=== PATIENT | female | born 1940 ===

== ENCOUNTER → 2021-01-27 14:36 | Outpatient (BNVA) | payer MEDICARE, OTHER, SELFPAY | PROVIDERS: PCP Internal Medicine; Visit Provider Hospitalist | DX: R91.8 Other nonspecific abnormal finding of lung field (principal) | CPT/HCPCS: 99202 ==

== ENCOUNTER → 2021-04-28 14:31 | Outpatient (BNVA) | payer MEDICARE, OTHER, SELFPAY | PROVIDERS: PCP Internal Medicine; Visit Provider Hospitalist | DX: R91.8 Other nonspecific abnormal finding of lung field (principal) | CPT/HCPCS: 99212 ==

== ENCOUNTER 2021-09-11 13:34 | Outpatient (REF) | payer MEDICARE, OTHER, SELFPAY ==
--- NOTE | ~2021-09-11 | XR_ITS ---
EXAMINATION: XR CHEST CLINICAL INFORMATION: Covid infection COMPARISON: None TECHNIQUE: 2 views of the chest were obtained. FINDINGS: The cardiac and mediastinal contours are normal. The lungs are clear. There is no pleural effusion or pneumothorax. There are surgical clips in the right axilla or upper outer quadrant of the right breast. Bony structures are unremarkable. XR/XR chest 2V IMPRESSION: No evidence of acute disease in the chest.
== END 2021-09-11 13:35 | disposition home or self-care (01) ==
LOC: HO.XRAY 13:34
PROVIDERS: PCP Internal Medicine; Visit Provider Hospitalist
DX: U07.1 COVID-19 (principal); R91.8 Other nonspecific abnormal finding of lung field
CPT/HCPCS: 71046; 99212

== ENCOUNTER → 2021-10-25 09:45 | Outpatient (BNVA) | payer MEDICARE, OTHER, SELFPAY | PROVIDERS: PCP Internal Medicine; Visit Provider Hospitalist | DX: R91.8 Other nonspecific abnormal finding of lung field (principal); Z85.3 Personal history of malignant neoplasm of breast | CPT/HCPCS: 99212 ==

== ENCOUNTER 2021-11-02 06:56 | Day surgery (SDC) | payer MEDICARE, OTHER, SELFPAY ==
--- NOTE | 2021-11-01 09:02 | HO.ANESPROP2 ---
Documented by User: Rachna Moyer NP 11/01/21 09:03 HPI - Anesthesia Eval Consult details Narrative: 81yo F for Bronchoscopy Fiberoptic PMFSH Active Problems Active Problems: All Active Problems (Updated 09/05/21 @ 16:35 by Margarito Mcwilliams MD) COVID-19 (Acute) Pulmonary nodules (Acute) Past Medical History Medical History (Updated 11/02/21 @ 08:00 by Za Betancourt MD) Breast cancer HTN (hypertension) Pulmonary nodules Surgical History Surgical History (Updated 11/02/21 @ 07:51 by Millicent Alas RN) History of lumpectomy of right breast Social History Social History Patient Tobacco Use Status: Former Tobacco user Quit Date: years ago Tobacco use type: Cigarette Years Smoked: 22 years Use of substances other than those prescribed or required for medical reasons: No Are you DNR?: No Advance Directives: No Advance Directives Information Provided: Yes Meds Allergies Allergy/AdvReac Type Severity Reaction Status Date / Time Iodinated Contrast Media Allergy Severe Tightness Verified 11/01/21 10:09 [Contrast Dye] in Throat Home Medications Medication Instructions Recorded Confirmed Last Taken Type biotin 5 mg capsule 5 mg PO DAILY 01/27/21 Unknown History cholecalciferol (vitamin D3) 50 50 mcg PO DAILY 01/27/21 Unknown History mcg (2,000 unit) capsule estradiol (Estrace) 1 g vaginal QWEEK 01/27/21 Unknown History multivitamin (Daily Multi-Vitamin) 1 tab PO DAILY 01/27/21 Unknown History ramipril 5 mg capsule 5 mg PO DAILY 01/27/21 Unknown History chlorhexidine gluconate 0.12 % ml PO 04/28/21 Unknown History mouthwash tobramycin 0.3 %-dexamethasone 0.1 1 drp ophthalmic-Right QID 09/11/21 Unknown History % eye drops,suspension vit C 250 mg-vit E 90 mg-zinc 40 1 tab PO BID 09/11/21 Unknown History mg-copper 1 kg-uiieog-bwdwze capsule (PreserVision AREDS-2) Exam Exam Date and Time: November 01, [id number] Assessment and Plan Assessment Anesthesia Assessment: Chart Reviewed Documented by User: Za Betancourt MD 11/02/21 08:11 PMFSH Active Problems Active Problems: All Active Problems (Updated 09/05/21 @ 16:35 by Margarito Mcwilliams MD) COVID-19 (Acute). Lingering cough which has mostly resolved Pulmonary nodules (Acute) Past Medical History Medical History (Updated 11/02/21 @ 08:00 by Za Betancourt MD) Breast cancer HTN (hypertension) Pulmonary nodules Family History Family history of problems with anesthesia: No Surgical History Surgical History (Updated 11/02/21 @ 07:51 by Millicent Alas RN) History of lumpectomy of right breast History of Problems with Anesthesia: No Social History Social History Patient Tobacco Use Status: Former Tobacco user Quit Date: years ago Tobacco use type: Cigarette Years Smoked: 22 years Use of substances other than those prescribed or required for medical reasons: No Are you DNR?: No Advance Directives: No Advance Directives Information Provided: Yes Meds Allergies Allergy/AdvReac Type Severity Reaction Status Date / Time Iodinated Contrast Media Allergy Severe Tightness Verified 11/01/21 10:09 [Contrast Dye] in Throat Home Medications Medication Instructions Recorded Confirmed Last Taken Type biotin 5 mg capsule 5 mg PO DAILY 01/27/21 Unknown History cholecalciferol (vitamin D3) 50 50 mcg PO DAILY 01/27/21 Unknown History mcg (2,000 unit) capsule estradiol (Estrace) 1 g vaginal QWEEK 01/27/21 Unknown History multivitamin (Daily Multi-Vitamin) 1 tab PO DAILY 01/27/21 Unknown History ramipril 5 mg capsule 5 mg PO DAILY 01/27/21 Unknown History chlorhexidine gluconate 0.12 % ml PO 04/28/21 Unknown History mouthwash tobramycin 0.3 %-dexamethasone 0.1 1 drp ophthalmic-Right QID 09/11/21 Unknown History % eye drops,suspension vit C 250 mg-vit E 90 mg-zinc 40 1 tab PO BID 09/11/21 Unknown History mg-copper 1 on-baroxm-dinfob capsule (PreserVision AREDS-2) Exam Height,Weight and Vital Signs: Height 5 ft 7 in Weight 63.049 kg Vital Signs Temp Pulse Resp BP Pulse Ox O2 Del Method 11/02/21 07:48 97.1 F 59 18 126/53 L 96 Room Air Airway Mallampati Class: II TM Dist: >3cm Neck ROM: Full Loose/Missing/Broken Teeth: Yes (?broken top back right per patient) Heart: RRR Lungs: CTAB Assessment and Plan Assessment Anesthesia Assessment: Anesthesia Plan Discussed Final Anesthetic Review Family History of Problems with Anesthesia: No History of Problems with Anesthesia: No NPO: Yes ASA Class: II Final Preanesthetic Review: No Changes in Pt Med Stat, Meds/Allgs Chart Reviewed, Consent Obtained/Reviewed and Anes Risks/Benef Reviewed Patient Risk: Low Procedure Risk: Low Assessment/Block/Sedation in SS: Assess/Block/Sedation-SS Anesthetic Plan Anesthetic Plan: GA Disposition: Standard PACU
--- NOTE | ~2021-11-02 | XR_ITS ---
EXAMINATION: XR CHEST CLINICAL INFORMATION: Status post-post lung biopsy. COMPARISON: Chest radiographs dated 09/11/2021. TECHNIQUE: Frontal view of the chest was obtained. FINDINGS: No significant abnormality is noted involving the heart, lungs, mediastinum, bony thorax or soft tissues. XR/XR chest 1V IMPRESSION: Unremarkable examination. No pneumothorax is seen.
[2021-11-02 07:16] VITALS: BMI 21.7
[2021-11-02 07:48] VITALS: BP 126/53; PULSE 59; RESP 18; TEMP 36.2; O2SAT 96
[2021-11-02 07:49] VITALS: BMI 21.7
[2021-11-02] MEDS: Lactated Ringers 1,000 ML 100 ML IVCONT (08:09)
--- NOTE | 2021-11-02 08:10 | MHC.SHP ---
Pre-Procedural Eval Section A Date of Service: 11/02/21 The patient is an INPATIENT: No Changes since office visit: No Cold of Flu in the past 2 weeks, No New Medical Problems, No Changes in Medication and No Patient answered all questions Section B Chief Complaint: pulmonary nodule Allergies: Allergies Allergy/AdvReac Type Severity Reaction Status Date / Time Iodinated Contrast Media Allergy Severe Tightness Verified 11/01/21 10:09 [Contrast Dye] in Throat Plan I have reviewed the history and physical and performed a pertinent physical examination on my patient. No changes have occurred unless specified.
[2021-11-02 08:50] VITALS: BP 127/72; PULSE 72; RESP 16; TEMP 36.3; O2SAT 97
[2021-11-02 08:55] VITALS: BP 139/68; PULSE 71; RESP 17; O2SAT 96
--- NOTE | 2021-11-02 08:59 | PM.OP ---
Brief Operative Note Date of Service: 11/02/21 Pre-op diagnosis: pulmonary nodules Post-op diagnosis: same Procedure: bronchoscopy with transbronchial biopsies, brushings, washings Surgeon: Margarito Mcwilliams MD Anesthesia: GLMA Was an Treatment Plant Mechanic used for this Procedure?: No Estimated blood loss (mL): 0 Pathology: other (RML transbronchial biopsies) Condition: stable Disposition: same day
[2021-11-02 09:00] VITALS: BP 135/57; PULSE 71; RESP 18; O2SAT 98
[2021-11-02 09:05] VITALS: BP 137/58; PULSE 68; RESP 18; O2SAT 98
[2021-11-02 09:20] VITALS: BP 158/65; PULSE 61; RESP 18; TEMP 36.3; O2SAT 98
--- NOTE | 2021-11-02 23:33 | OP_ITS ---
SURGEON: Margarito Mcwilliams MD PREOPERATIVE DIAGNOSIS: Pulmonary nodules. POSTOPERATIVE DIAGNOSIS: Pulmonary nodules. PROCEDURE PERFORMED: Bronchoscopy with transbronchial biopsies, brushings and washings. ESTIMATED BLOOD LOSS: COMPLICATIONS: ANESTHESIA: ASSISTANTS: SPECIMENS: COLUMN PRECASTER: None. PROCEDURE IN DETAIL: After the patient was adequately sedated and LMA in place, the flexible digital bronchoscope was inserted over the LMA to the level of the larynx. The vocal cords appear to be normal, midline and symmetrical. No laryngeal abnormalities noted. After instilling lidocaine 2% total of 6 mL, the bronchoscope was then passed through vocal cords to the level of the trachea. Tracheal mucosa appeared normal. There were some areas of mucoid secretions impacting the lorenzo but not obstructing the airway. After instilling another 3 mL of lidocaine, the bronchoscope was then navigated to the entire tracheobronchial tree that was examined up to the subsegmental level. No endobronchial lesions or abnormalities noted per se. She did have what appeared to be some bronchiectatic airways, diverticula and some acanthosis likely from her former smoking years and possibly other environmental exposures resulting in chronic airway changes. The patient did have mucoid secretions primarily from the lingula and also from the right middle lobe. Using a brush, it was introduced into the right middle lobe at the site of the growing nodule, and the initial brush was sent for cytology and the second brush was sent for microbiology. Bronchial washings were collected bilaterally. Next, using forceps, transbronchial biopsies were collected from the right middle lobe. Small pieces of transbronchial tissue were collected and placed in formalin for pathology to evaluate. The patient did have any significant bleeding, so therefore, epinephrine was not used. She tolerated the procedure well. No evidence of bleeding after few minutes of monitoring. The bronchoscope was then removed. The total endoscopic time was approximately about 20 minutes. The patient tolerated the procedure well. Blood loss none and complications none. Chest x-ray appeared to be stable. INTERPRETATION: Successful bronchoscopy with transbronchial biopsies of the right middle lobe. Brushings x2 from the right middle lobe and bilateral washings. All sent to the appropriate location. MD CADE Yu/MODL / [id number]
== END 2021-11-02 11:05 | disposition home or self-care (01) ==
PROVIDERS: PCP Internal Medicine; Visit Provider Hospitalist
PROC: 0BJ08ZZ Inspection of Tracheobronchial Tree, Via Natural or Artificial Opening Endoscopic (ICD-10-PCS; CPT 31622; principal; 2021-11-02 08:00)
DX: R91.8 Other nonspecific abnormal finding of lung field (principal); I10 Essential (primary) hypertension; Z85.3 Personal history of malignant neoplasm of breast; Z92.3 Personal history of irradiation; Z91.041 Radiographic dye allergy status; Z87.891 Personal history of nicotine dependence; Z79.899 Other long term (current) drug therapy
CPT/HCPCS: 31628; 31623; 71045; 87071; 87102; 87116; 87205; 88112; 88305; J0171; J1100; J2405

== ENCOUNTER → 2021-11-17 13:32 | Outpatient (BNVA) | payer MEDICARE, OTHER, SELFPAY | PROVIDERS: PCP Internal Medicine; Visit Provider Hospitalist | DX: R91.8 Other nonspecific abnormal finding of lung field (principal) | CPT/HCPCS: 99212 ==

== ENCOUNTER → 2022-05-17 14:07 | Outpatient (BNVA) | payer MEDICARE, OTHER, SELFPAY | PROVIDERS: PCP Internal Medicine; Visit Provider Hospitalist | DX: R91.8 Other nonspecific abnormal finding of lung field (principal); R05.3 Chronic cough | CPT/HCPCS: 99212 ==

== ENCOUNTER 2022-05-29 09:04 | Outpatient (REF) | payer MEDICARE, OTHER, SELFPAY ==
--- NOTE | ~2022-05-29 | PE_ITS ---
EXAMINATION: NM FLUORINE-18 FDG PET/CT SCAN CLINICAL INDICATION: Initial treatment management. Right middle lobe pulmonary nodule. PROCEDURE: 55 minutes following the intravenous administration of 16.8 mCi of fluorine 18 FDG, images from the base of the skull to the mid thighs were obtained using a combined PET/CT scanner with CT scan based attenuation correction. No intravenous contrast was administered. Transverse, coronal, sagittal, and volume reconstruction projections were obtained. The patient's blood glucose as determined by a finger stick was 95 mg/dL immediately prior to injection. This examination was performed using dose optimization techniques as appropriate, variously including the following: *Automated exposure control *Adjustment of mA and/or kV according to patient size (this includes techniques or standardized protocols for targeted exams where dose is matched to indication/reason for exam; i.e. extremities or head) *Use of iterative reconstruction technique DLP: 319 mGy-cm COMPARISON: CT chest 04/30/2022, [facility]. FINDINGS: NECK AND VISUALIZED HEAD: Mild focal FDG uptake in the left posterior neck SUVmax 2.1 (slice 44/698), in association with what appears to be a serpiginous vessel, of uncertain significance. Attention on follow-up in future examinations recommended. THORAX: Lung: The lesion in question corresponds to a subsolid right middle lobe pulmonary nodule measuring 1.7 cm with solid component measuring 0.7 cm, SUVmax 1.3 (slices 238 and 240/698). Several additional pulmonary nodules are noted, largest as follow: 1. Ground-glass nodule in the right lower lobe measuring 1.6 cm, SUVmax 0.9 (slice 219/698). 2. Solid 0.5 cm nodule in the right apex (image 213, series 2), too small to characterize by PET. 3. Solid 0.9 cm nodule in the right upper lobe, SUVmax 1 (slice 140/698). 4. Solid 0.3 cm nodule in the lateral right upper lobe (image 201, series 2), too small to characterize by PET. 5. Solid 0.3 cm nodule in the right upper lobe (image 192, series 2), too small to characterize by PET. 6. Solid 0.8 cm nodule in the right lower lobe SUVmax 1 (slice 256/698). 7. Solid 0.7 cm nodule in the left lower lobe SUVmax 1.4 (slice 237/698). Background of emphysematous changes and mild biapical subpleural thickening/scarring. No focal consolidation. Mediastinum: No FDG-avid mediastinal lymphadenopathy. Mild focal FDG uptake in the left hilum SUVmax 1.8 (slice 203/698), nonspecific could represent a subcentimeter lymph node or related with the pulmonary vasculature. Normal heart size. Coronary artery calcifications are present. Pericardium/Pleura: No abnormal FDG uptake. No pleural effusion or pneumothorax. No pericardial effusion. Chest Wall/Axilla: No FDG-avid lymphadenopathy. Surgical clips are noted in the right axillary region. ABDOMEN AND PELVIS: Peritoneal Space: No abnormal FDG uptake. Liver, Gallbladder, Biliary Tree: No FDG-avid lesion. Normal appearance of the gallbladder. No biliary ductal dilatation. Pancreas: No abnormal FDG uptake. Spleen: No abnormal FDG activity. Adrenal Glands: No FDG-avid lesion. Kidneys and Ureters: No nephrolithiasis or hydronephrosis. No abnormal FDG uptake. Bladder: Nondiagnostic evaluation of FDG-avid lesions due to excretory activity. Gastrointestinal Tract: Varying degrees of physiologic uptake throughout the bowel. No abnormal focal FDG uptake. Colonic diverticulosis. No findings to suspect acute colitis, diverticulitis or bowel obstruction. Abdominal Wall: No abnormal FDG uptake. Lymphovascular Structures: No FDG-avid lymphadenopathy. Pelvic Viscera: No abnormal FDG uptake. MUSCULOSKELETAL: No aggressive FDG-avid bony lesions. Focal increased FDG uptake in the left facet at the level of C4 SUVmax 3.1 (slice 69/698) and in the left sternoclavicular joint SUVmax 2.6 (slice 160/698) in association with subcortical sclerosis and osteophytes, favored to represent degenerative changes. Focal FDG uptake at injection site in the left antecubital fossa. VASCULAR: No abnormal FDG uptake. There is scattered atherosclerotic disease. The abdominal aorta is of normal diameter. PET/PET CT fusion skull to thigh IMPRESSION: Multiple mixed solid, subsolid and ground-glass pulmonary nodules largest being a 1.7 cm subsolid nodule in the right middle lobe with solid component measuring 0.7 cm SUVmax 1.3 and a 1.6 cm ground-glass nodule in the right lower lobe SUVmax 0.9. Because approximately 10% of pulmonary malignancies demonstrate no abnormal FDG activity/uptake lesser than the mediastinal blood pool, if biopsy of the largest nodules is not obtained, followup with diagnostic CT scan in 3-6 months is recommended. Mild focal FDG uptake in the left hilum, SUVmax 1.8 that could represent a subcentimeter lymph node or be related with pulmonary vasculature uptake. This could be safely follow-up in subsequent examinations. No evidence of hypermetabolic metastatic disease.
== END 2022-05-29 09:05 | disposition home or self-care (01) ==
LOC: HO.PET 09:04
PROVIDERS: Visit Provider Hospitalist
DX: Z13.89 Encounter for screening for other disorder (principal)

== ENCOUNTER → 2022-06-06 10:55 | Outpatient (BNVA) | payer MEDICARE, OTHER, SELFPAY | PROVIDERS: PCP Internal Medicine; Visit Provider Hospitalist | DX: R91.8 Other nonspecific abnormal finding of lung field (principal); R05.3 Chronic cough | CPT/HCPCS: 99212 ==

== ENCOUNTER → 2022-08-20 13:18 | Outpatient (BNVA) | payer MEDICARE, OTHER, SELFPAY | PROVIDERS: PCP Internal Medicine; Visit Provider Hospitalist | DX: R91.1 Solitary pulmonary nodule (principal); C34.91 Malignant neoplasm of unspecified part of right bronchus or lung; D3A.00 Benign carcinoid tumor of unspecified site; R05.3 Chronic cough | CPT/HCPCS: 99212 ==

== ENCOUNTER → 2022-09-06 11:18 | Outpatient (BNVA) | payer MEDICARE, OTHER, SELFPAY | PROVIDERS: PCP Internal Medicine; Visit Provider Hospitalist | DX: C34.91 Malignant neoplasm of unspecified part of right bronchus or lung (principal); R05.3 Chronic cough; D3A.00 Benign carcinoid tumor of unspecified site | CPT/HCPCS: 99212 ==

== ENCOUNTER 2023-03-01 09:14 | Outpatient (AMB) | payer MEDICARE, OTHER, SELFPAY ==
--- NOTE | 2023-03-01 09:17 | MHC.OFFVIS ---
Intake Vital Signs 03/01/23 09:21 Height 5 ft 7 in Weight 143 lb 4.807 oz BMI 22.4 BP 118/60 Blood Pressure Location Lt brachial Position Sitting Pulse 56 Pulse Source Pulse Oximeter Pulse Oximetry (%) 99 Oxygen Delivery Method Room Air Intake Visit Reasons: pulmonary nodules Legal Cashier Required: No Allergies Iodinated Contrast Media [Contrast Dye] Allergy (Severe, Verified 03/01/23 09:23) Tightness in Throat HPI HPI Comments History of Present Illness Details The patient is an 82-year-old woman with a known history of breast cancer back in 2017 who also has a history of pulmonary nodules. She was followed very closely for her pulmonary nodules at [facility]. She had CT scans for several years and her last CT scan was back in 2018. overall the patient has been doing well from a respiratory status. Denies any shortness of breath or chest congestion. She does have a cough at times. Primarily at nighttime tends to be worse. Mild in severity. Ultimately she did undergo repeat CT scan more recently December 2020. This CT scan of the chest was personally by me demonstrating 2 new nodular densities 1 in the right upper lobe and 1 in the right lower lung. Patient has although pulmonary nodules noted. These 2 nodules are indeed new. They do have a slight hazy appearance. we did review her CT scans from 2018 and also 2018. her new pulmonary nodules very between 5-8 mm in size. She has had other nodules waxing waning. I am going to request blood work for or different inflammatory allergies that can resulting pulmonary nodules. In the meantime based on the size of the nodules in her history of breast cancer no request a repeat CT scan 3 months from now. 04/28/2021 the patient is here for a pulmonary follow-up visit. Overall the patient has been doing well from a respiratory status. We did review her blood work that she underwent back in fall. the workup was negative. Normal sedimentation rate, normal hyper sensitivity panel, negative ANCA ruling out vasculitides in a negative JILL. Therefore no clear etiology for the nodular densities in or the ground-glass opacities. She did have a repeat CT scan of the chest demonstrating no significant changes to the pulmonary nodules when compared to the CT scan done in December 2020. However, these nodular densities have worsen when compared to her CT scan from 2019. Therefore, the nodules are still concerning and should be monitor closely. I will request a CT scan of the chest in months. 11/17/2021 the patient is here for a pulmonary follow-up visit. She is doing very well. The patient tolerated the bronchoscopy well without any adverse effects. Her cytology both brushings washings have demonstrated only acute on chronic inflammatory cells. No evidence of any malignancy. In addition to that we did perform transbronchial biopsies of the right middle lobe demonstrating normal broncho alveolar tissue. Her cultures are all negative although the AFB and mycobacterial cultures are still pending. Does with take several more weeks. Again we did talk about her CT scan. She has underlying pulmonary nodules. She has had pulmonary nodules now for many years but wishes that was getting slightly worse in the right middle lobe. The patient is agreeable to repeat the CT scan in 6 months just to make sure that the process is stable. The bronchoscopies results are encouraging although close monitoring of the nodular densities still essential. 05/17/2022 the patient is here for a pulmonary follow-up visit. The patient overall has been doing well from a respiratory status. She does have intermittent cough but otherwise doing well. No significant weight loss or night sweats. The patient was curious about the other pending results of her bronchoscopy. We did review her mycobacterial cultures all negative. Again her transbronchial biopsies were consistent normal bronchoalveolar tissue. brushings and washings demonstrated some mild inflammatory changes. She did have a repeat CT scan of the chest April 2022 which we personally reviewed. It was done at [facility] and was compared to her previous 1 from 6 months ago. The actual nodular density in right middle lobe area if not well-circumscribed is irregular in nature. This seems to be in nodular component to it although is not clear if he has the same process. Still it appeared to be slightly larger measuring 12 mm 6 months ago and now 14 mm in diameter. the patient has other pulmonary nodules but the appear to be changed. Based on this increasing nodular density now measuring 1.4 cm I will request a PET scan. Also will refer the patient to be evaluated by thoracic surgery. 06/06/2022 the patient is here for a pulmonary follow-up visit. The patient continues to be fairly nervous about her upcoming visit with the thoracic surgeon. She did bring her son to this visit. We again went over the CT scan that she had back in September 2021 at [facility] and also the repeat CT scan that she had in April 2021. We did go over the bronchoscopy results demonstrating no evidence of any infection and her blind transbronchial biopsies demonstrated no abnormalities all the broncho are really tissue that being said we know that the area was felt to be increasing in size on her most recent CT scan. Therefore she underwent a PET scan. The PET scan has not been read officially as of yet we did look at it. The area of concern does not have significant FDG activity at this time that I could see. No other significant areas except for some likely physiological changes that I could appreciate. Overall her PET scan results are reassuring. This area is irregular in size and may have a component of subsolid so therefore the PET scan may be a little less accurate when he comes to these lesions. Therefore, I do believe that evaluation of thoracic surgeon will be handle and finger in about the next step. Otherwise respiratory status is stable. She denies any worsening respiratory symptoms. She denies any constitutional symptoms. 08/20/2022 The patient is here for a pulmonary follow up visit. 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 Lymphnodes are negative. Surgery is curative intent. No need for chemo or radiation. Has a CT chest at [facility] in 6 months. In the meantime she complains of a hacky cough primarily swhen laying flat, moderate in severity. Also complianing of right sided pain at the site of the surgical tube site. Looks like is healing well. Still with a small scab and some erythma and tender induration around the site. 09/06/2022 the patient is here for pulmonary follow-up visit. She still having pain at the site of the surgery. Moderate severity. She was given gabapentin but she can tolerated. I did recommend she can consider using the gabapentin at nighttime between 100-200 mg. She does have an appointment with psychiatrist is afternoon they can discuss it as far as trazodone versus gabapentin. I do believe that the in her lactic will help with her sleep and also help with her nerve does comfort after having the thoracoscopy. The area looks better. Does not look as read. Does not look as indurated. I did reassure her that looks a lot better. She is very tear for in upset about the situation with her son. Her son appears to have some degree of schizophrenia or delusional manifestations. The patient is trying to find help for her son. She denies her son having any homicidal or suicidal ideations. His son is not with her. Therefore, did call crisis and they did give me a phone number for them to call to see if they can provide her some assistance. For respiratory status patient appears to be doing well she is following closely with her exercises. She had a CT scan scheduled for 6 months time. Will follow up then. If she has any issues prior to that she is to call the office for an earlier assessment. 03/01/2023 the patient is here for a pulmonary follow-up visit. Overall the patient has been doing very well. Her cough is overall better. Her chest discomfort also better. She is sleeping better. She did recently have a CT scan of the chest that we personally reviewed. She has had her status post wedge resection and is appears to be healing well. No evidence of any recurrence. She will be following closely with thoracic surgery every 6 months for the next 5 years. We did talk about vaccines. I did recommend she follow up with the pharmacy regarding her Prevnar 20 and also did recommend she get the ER as he vaccine. She already got her flu shot. The patient is not using any inhalers at this time. She is no longer requiring the Tessalon Perles. Will follow-up in a year's time. The patient has any new or concerning symptoms prior to that she will call the office for an earlier assessment [facility] Medical History (Updated 03/01/23 @ 12:48 by Margarito Mcwilliams MD) Carcinoid tumor Adenocarcinoma of right lung Chronic cough Pulmonary nodule HTN (hypertension) Breast cancer Pulmonary nodules Surgical History (Updated 11/02/21 @ 07:51 by Millicent Alas RN) History of lumpectomy of right breast Social History Patient Tobacco Use Status: Former Tobacco user Quit Date: years ago Tobacco use type: Cigarette Years Smoked: 22 years Review of Systems Const Denies fever(s) and Denies night sweats ENT Denies change in voice, Denies lip swelling, Denies mouth pain, Reports nasal congestion, Reports nasal discharge and Denies tongue swelling Card Reports chest pain Resp Reports cough GI Denies abdominal pain Musc Denies no additional complaints Neuro Denies Neuro-related abnormal movements Psych Denies no additional complaints Anthony/Lymph Denies easy bleeding and Denies lymphadenopathy Aller/Immun Denies lip swelling and Denies tongue swelling Physical Exam Vital Signs: Last Vital Signs Pulse 56 03/01/23 09:21 BP 118/60 03/01/23 09:21 Pulse Ox 99 03/01/23 09:21 Oxygen Delivery Method Room Air 03/01/23 09:21 BMI result Body Mass Index 22.4 Const General: alert Neck Neck: Yes normal visual inspection, Yes full ROM and Yes no lymphadenopathy Chest Chest palpation & inspection: normal inspection of the chest, no tenderness, No rash and other (right chest surgical site C/D/I) Resp Auscultation: clear to auscultation bilaterally, no crackles, no rales, no rhonchi and no wheezes Cardio Rate: regular rate Rhythm: regular rhythm Heart sounds: S1 normal heart sound present and S2 normal heart sound present GI Palpation (GI): Soft to palpation and nontender Auscultation: normal bowel sounds Skin Wounds: wounds noted (right chest wound C/D/I, just mild erytheman with induration.) Assessment & Plan Assessment & Plan (1) Chronic cough: Comment: better Code(s): R05.3 - Chronic cough (2) Adenocarcinoma of right lung: Code(s): C34.91 - Malignant neoplasm of unspecified part of right bronchus or lung (3) Carcinoid tumor: Code(s): D3A.00 - Benign carcinoid tumor of unspecified site Qualifiers: Carcinoid tumor location: lung Carcinoid tumor malignancy status: benign Qualified Code(s): D3A.090 - Benign carcinoid tumor of the bronchus and lung Plan F/U CT chest in 6 months at [facility] F/U 6-12 months Coding Level of Care Code Est Pt Level 4 (97795) Diagnoses Chronic cough R05.3 Adenocarcinoma of right lung C34.91 Benign carcinoid tumor of lung D3A.090 Carcinoid tumor location: lung Carcinoid tumor malignancy status: benign Time Spent (min) 16
[2023-03-01 09:21] VITALS: BP 118/60; PULSE 56; O2SAT 99; BMI 22.4
== END 2023-03-01 09:40 | disposition home or self-care (01) ==
PROVIDERS: PCP Internal Medicine; Visit Provider Hospitalist
DX: R05.3 Chronic cough (principal); C34.91 Malignant neoplasm of unspecified part of right bronchus or lung; D3A.090 Benign carcinoid tumor of the bronchus and lung
CPT/HCPCS: 99214

== ENCOUNTER → 2023-03-01 09:14 | Outpatient (BNVA) | payer MEDICARE, OTHER, SELFPAY | PROVIDERS: PCP Internal Medicine; Visit Provider Hospitalist | DX: R05.3 Chronic cough (principal); C34.91 Malignant neoplasm of unspecified part of right bronchus or lung; D3A.090 Benign carcinoid tumor of the bronchus and lung | CPT/HCPCS: 99212 ==

== ENCOUNTER 2024-03-06 13:18 | Outpatient (AMB) | payer MEDICARE, OTHER, SELFPAY ==
[2024-03-06 13:24] VITALS: BP 120/70; PULSE 96; O2SAT 98; BMI 22.3
--- NOTE | 2024-03-06 13:24 | A.OFFVIS_ITS ---
Vital Signs 03/06/24 13:24 Height 5 ft 7 in Weight 142 lb 3.17 oz BMI 22.3 BP 120/70 Blood Pressure Location Lt brachial Position Sitting Pulse 96 Pulse Source Pulse Oximeter Pulse Oximetry (%) 98 Oxygen Delivery Method Room Air Intake Visit Reasons: Pulmonary nodule Personal Development Mentor Required: No R And D Lab Technician: R And D Lab Technician offered & declined Accompanied by: Self / Same As Patient Allergies Iodinated Contrast Media [Contrast Dye] Allergy (Severe, Verified 03/06/24 13:28) Tightness in Throat Medication List - Last Reconciled 03/06/24 by Cora Medrano LPN benzonatate 200 mg PO BID PRN 15 days cholecalciferol (vitamin D3) 50 mcg PO DAILY estradiol 0.01%(0.1mg/gram) (Estrace) 1 g vaginal QWEEK metoprolol tartrate 12.5 mg PO BID multivitamin (Daily Multi-Vitamin tablet) 1 tab PO DAILY omeprazole 20 mg PO BID ramipril 5 mg PO DAILY trazodone 50 mg PO BEDTIME HPI Comments Details: The patient is an 83-by daycare [employer] we can year-old woman with a known history of breast cancer back in 2017 who also has a history of pulmonary nodules. She was followed very closely for her pulmonary nodules at [facility]. She had CT scans for several years and her last CT scan was back in 2019. overall the patient has been doing well from a respiratory status. Denies any shortness of breath or chest congestion. She does have a cough at times. Primarily at nighttime tends to be worse. Mild in severity. Ultimately she did undergo repeat CT scan more recently December 2020. This CT scan of the chest was personally by me demonstrating 2 new nodular densities 1 in the right upper lobe and 1 in the right lower lung. Patient has although pulmonary nodules noted. These 2 nodules are indeed new. They do have a slight hazy appearance. we did review her CT scans from 2018 and also 2018. her new pulmonary nodules very between 5-8 mm in size. She has had other nodules waxing waning. I am going to request blood work for or different inflammatory allergies that can resulting pulmonary nodules. In the meantime based on the size of the nodules in her history of breast cancer no request a repeat CT scan 3 months from now. 04/28/2021 the patient is here for a pulmonary follow-up visit. Overall the patient has been doing well from a respiratory status. We did review her blood work that she underwent back in fall. the workup was negative. Normal sedimentation rate, normal hyper sensitivity panel, negative ANCA ruling out vasculitides in a negative JILL. Therefore no clear etiology for the nodular densities in or the ground-glass opacities. She did have a repeat CT scan of the chest demonstrating no significant changes to the pulmonary nodules when compared to the CT scan done in December 2020. However, these nodular densities have worsen when compared to her CT scan from 2018. Therefore, the nodules are still concerning and should be monitor closely. I will request a CT scan of the chest in 6 months. 11/17/2021 the patient is here for a pulmonary follow-up visit. She is doing v yuliya well. The patient tolerated the bronchoscopy well without any adverse effects. Her cytology both brushings washings have demonstrated only acute on chronic inflammatory cells. No evidence of any malignancy. In addition to that we did perform transbronchial biopsies of the right middle lobe demonstrating normal broncho alveolar tissue. Her cultures are all negative although the AFB and mycobacterial cultures are still pending. Does with take several more weeks. Again we did talk about her CT scan. She has underlying pulmonary nodules. She has had pulmonary nodules now for many years but wishes that was getting slightly worse in the right middle lobe. The patient is agreeable to repeat the CT scan in 6 months just to make sure that the process is stable. The bronchoscopies results are encouraging although close monitoring of the nodular densities still essential. 05/17/2022 the patient is here for a pulmonary follow-up visit. The patient overall has been doing well from a respiratory status. She does have intermittent cough but otherwise doing well. No significant weight loss or night sweats. The patient was curious about the other pending results of her bronchoscopy. We did review her mycobacterial cultures all negative. Again her transbronchial biopsies were consistent normal bronchoalveolar tissue. brushings and washings demonstrated some mild inflammatory changes. She did have a repeat CT scan of the chest April 2022 which we personally reviewed. It was done at [facility] and was compared to her previous 1 from 6 months ago. The actual nodular density in right middle lobe area if not well- circumscribed is irregular in nature. This seems to be in nodular component to it although is not clear if he has the same process. Still it appeared to be slightly larger measuring 12 mm 6 months ago and now 14 mm in diameter. the patient has other pulmonary nodules but the appear to be changed. Based on this increasing nodular density now measuring 1.4 cm I will request a PET scan. Also will refer the patient to be evaluated by thoracic surgery. 06/06/2022 the patient is here for a pulmonary follow-up visit. The patient continues to be fairly nervous about her upcoming visit with the thoracic surgeon. She did bring her son to this visit. We again went over the CT scan that she had back in September 2021 at [facility] and also the repeat CT scan that she had in April 2021. We did go over the bronchoscopy results demonstrating no evidence of any infection and her blind transbronchial biopsies demonstrated no abnormalities all the broncho are really tissue that being said we know that the area was felt to be increasing in size on her most recent CT scan. Therefore she underwent a PET scan. The PET scan has not been read officially as of yet we did look at it. The area of concern does not have significant FDG activity at this time that I could see. No other significant areas except for some likely physiological changes that I could appreciate. Overall her PET scan results are reassuring. This area is irregular in size and may have a component of subsolid so therefore the PET scan may be a little less accurate when he comes to these lesions. Therefore, I do believe that evaluation of thoracic surgeon will be handle and finger in about the next step. Otherwise respiratory status is stable. She denies any worsening respiratory symptoms. She denies any constitutional symptoms. 08/20/2022 The patient is here for a pulmonary follow up visit. 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 Lymphnodes are negative. Surgery is curative intent. No need for chemo or radiation. [place] [facility] [place] In the meantime she complains of a hacky cough primarily swhen laying flat, moderate in severity. Also complianing of right sided pain at the site of the surgical tube site. Looks like is healing well. Still with a small scab and some erythma and tender induration around the site. 09/06/2022 the patient is here for pulmonary follow-up visit. She still having pain at the site of the surgery. Moderate severity. She was given gabapentin but she can tolerated. I did recommend she can consider using the gabapentin at nighttime between 100-200 mg. She does have an appointment with psychiatrist is afternoon they can discuss it as far as trazodone versus gabapentin. I do believe that the in her lactic will help with her sleep and also help with her nerve does comfort after having the thoracoscopy. The area looks better. Does not look as read. Does not look as indurated. I did reassure her that looks a lot better. She is very tear for in upset about the situation with her son. Her son appears to have some degree of schizophrenia or delusional manifestations. The patient is trying to find help for her son. She denies her son having any homicidal or suicidal ideations. His son is not with her. Therefore, did call crisis and they did give me a phone number for them to call to see if they can provide her some assistance. For respiratory status patient appears to be doing well she is following closely with her exercises. She had a CT scan scheduled for 6 months time. Will follow up then. If she has any issues prior to that she is to call the office for an earlier assessment. 03/01/2023 the patient is here for a pulmonary follow-up visit. Overall the patient has been doing very well. Her cough is overall better. Her chest discomfort also better. She is sleeping better. She did recently have a CT scan of the chest that we personally reviewed. She has had her status post wedge resection and is appears to be healing well. No evidence of any recurrence. She will be following closely with thoracic surgery every 6 months for the next 5 years. We did talk about vaccines. I did recommend she follow up with the pharmacy regarding her Prevnar 20 and also did recommend she get the ER as he vaccine. She already got her flu shot. The patient is not using any inhalers at this time. She is no longer requiring the Tessalon Perles. Will follow-up in a year's time. The patient has any new or concerning symptoms prior to that she will call the office for an earlier assessment 03/06/2024 the patient is here for a pulmonary follow-up visit. Overall she is doing okay. She did have a concerned with the new pulmonary nodule in the right hemithorax. The patient did have a CT-guided biopsy at [facility]. It demonstrated just reactive cells. No significant findings. 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 She does have a CT scan coming up in a month. She is nervous about the CT scan. Breathing hopkins she does complaint of increasing dyspnea on exertion. Although she is an avid walker. She is having some knee issues that are limiting her activity. We did look at her pulmonary function studies back from 2022 demonstrating a mild obstruction. I did offer inhaler but she would like to hold off at this time. Will plan to have her come back in a year and repeat the PFTs to see if any changes. If her symptoms worsen prior to her next visit she will call for an earlier assessment. In the meantime she will follow- up with the thoracic surgeon at [facility] after her CT scan. [facility] Medical History (Updated 03/08/24 @ 19:50 by Margarito Mcwilliams MD) COPD (chronic obstructive pulmonary disease) Carcinoid tumor Adenocarcinoma of right lung Chronic cough Pulmonary nodule HTN (hypertension) Breast cancer Pulmonary nodules Surgical History (Updated 11/02/21 @ 07:51 by Millicent Alas RN) History of lumpectomy of right breast Social History (Updated 03/06/24 @ 13:30 by Cora Medrano LPN) Patient Tobacco Use Status: Former Tobacco user Tobacco use type: Cigarette Years Smoked: 22 years Review of Systems Const Denies fever(s) and Denies night sweats ENT Denies change in voice, Denies lip swelling, Denies mouth pain, Reports nasal congestion, Reports nasal discharge and Denies tongue swelling Card Reports chest pain Resp Reports cough GI Denies abdominal pain Musc Denies no additional complaints Neuro Denies Neuro-related abnormal movements Psych Denies no additional complaints Anthony/Lymph Denies easy bleeding and Denies lymphadenopathy Aller/Immun Denies lip swelling and Denies tongue swelling Physical Exam Vital Signs: Last Vital Signs Pulse 96 03/06/24 13:24 BP 120/70 03/06/24 13:24 Pulse Ox 98 03/06/24 13:24 Oxygen Delivery Method Room Air 03/06/24 13:24 BMI result Body Mass Index 22.3 Const General: alert Neck Neck: Yes normal visual inspection, Yes full ROM and Yes no lymphadenopathy Chest Chest palpation & inspection: normal inspection of the chest, no tenderness, No rash and other (right chest surgical site C/D/I) Resp Auscultation: clear to auscultation bilaterally, no crackles, no rales, no rhonchi and no wheezes Cardio Rate: regular rate Rhythm: regular rhythm Heart sounds: S1 normal heart sound present and S2 normal heart sound present GI Palpation (GI): Soft to palpation and nontender Auscultation: normal bowel sounds Skin Wounds: wounds noted (right chest wound C/D/I, just mild erytheman with induration.) Assessment & Plan Assessment & Plan (1) Chronic cough: Comment: better Code(s): R05.3 - Chronic cough Category: Medical (2) Adenocarcinoma of right lung: Code(s): C34.91 - Malignant neoplasm of unspecified part of right bronchus or lung Category: Medical (3) Carcinoid tumor: Code(s): D3A.00 - Benign carcinoid tumor of unspecified site Category: Medical Qualifiers: Carcinoid tumor location: lung Carcinoid tumor malignancy status: benign Qualified Code(s): D3A.090 - Benign carcinoid tumor of the bronchus and lung (4) COPD (chronic obstructive pulmonary disease): Comment: mild based on PFTs [facility] Code(s): J44.9 - Chronic obstructive pulmonary disease, unspecified Category: Medical Qualifiers: COPD type: chronic bronchitis Chronic bronchitis type: simple Qualified Code(s): J41.0 - Simple chronic bronchitis Plan F/U CT chest next month, [facility] PFTs in 1 yr consider TRAV as needed F/U 12 months Orders: Orders PFT pulmonary function test 1 Year J41.0 - Simple chronic bronchitis Coding Level of Care Code Est Pt Level 4 (10742) Diagnoses Chronic cough R05.3 Adenocarcinoma of right lung C34.91 Benign carcinoid tumor of lung D3A.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
== END 2024-03-06 14:02 | disposition home or self-care (01) ==
PROVIDERS: PCP Internal Medicine; Visit Provider Hospitalist
DX: C34.91 Malignant neoplasm of unspecified part of right bronchus or lung (principal); D3A.090 Benign carcinoid tumor of the bronchus and lung; J41.0 Simple chronic bronchitis
CPT/HCPCS: 99214

== ENCOUNTER → 2024-03-06 13:18 | Outpatient (BNVA) | payer MEDICARE, OTHER, SELFPAY | PROVIDERS: PCP Internal Medicine; Visit Provider Hospitalist | DX: R05.3 Chronic cough (principal); J41.0 Simple chronic bronchitis; D3A.090 Benign carcinoid tumor of the bronchus and lung; C34.91 Malignant neoplasm of unspecified part of right bronchus or lung | CPT/HCPCS: 99212 ==

== ENCOUNTER 2025-03-04 12:58 | Outpatient (AMB) | payer MEDICARE, OTHER, SELFPAY ==
--- NOTE | 2025-03-04 12:59 | MHC.OFFVIS ---
Vital Signs 03/04/25 13:00 Height 5 ft 7 in Weight 143 lb 4.807 oz BMI 22.4 BP 112/50 L Blood Pressure Location Lt brachial Position Sitting Pulse 77 Pulse Source Pulse Oximeter Pulse Oximetry (%) 97 Oxygen Delivery Method Room Air Intake Visit Reasons: Pulmonary nodule Motorcycle Tester Required: No Accompanied by: Self / Same As Patient Allergies Iodinated Contrast Media (Contrast Dye) Allergy (Severe, Verified 03/04/25 13:04) Tightness in Throat HPI Comments Details: The patient is an 84-by daycare Se[employer] we can year-old woman with a known history of breast cancer back in 2016 who also has a history of pulmonary nodules. She was followed very closely for her pulmonary nodules at [facility]. She had CT scans for several years and her last CT scan was back in 2018. overall the patient has been doing well from a respiratory status. Denies any shortness of breath or chest congestion. She does have a cough at times. Primarily at nighttime tends to be worse. Mild in severity. Ultimately she did undergo repeat CT scan more recently December 2020. This CT scan of the chest was personally by me demonstrating 2 new nodular densities 1 in the right upper lobe and 1 in the right lower lung. Patient has although pulmonary nodules noted. These 2 nodules are indeed new. They do have a slight hazy appearance. we did review her CT scans from 2018 and also 2018. her new pulmonary nodules very between 5-8 mm in size. She has had other nodules waxing waning. I am going to request blood work for or different inflammatory allergies that can resulting pulmonary nodules. In the meantime based on the size of the nodules in her history of breast cancer no request a repeat CT scan 3 months from now. 04/28/2021 the patient is here for a pulmonary follow-up visit. Overall the patient has been doing well from a respiratory status. We did review her blood work that she underwent back in fall. the workup was negative. Normal sedimentation rate, normal hyper sensitivity panel, negative ANCA ruling out vasculitides in a negative JILL. Therefore no clear etiology for the nodular densities in or the ground-glass opacities. She did have a repeat CT scan of the chest demonstrating no significant changes to the pulmonary nodules when compared to the CT scan done in December 2020. However, these nodular densities have worsen when compared to her CT scan from 2019. Therefore, the nodules are still concerning and should be monitor closely. I will request a CT scan of the chest in 6 months. 11/17/2021 the patient is here for a pulmonary follow-up visit. She is doing very well. The patient tolerated the bronchoscopy well without any adverse effects. Her cytology both brushings washings have demonstrated only acute on chronic inflammatory cells. No evidence of any malignancy. In addition to that we did perform transbronchial biopsies of the right middle lobe demonstrating normal broncho alveolar tissue. Her cultures are all negative although the AFB and mycobacterial cultures are still pending. Does with take several more weeks. Again we did talk about her CT scan. She has underlying pulmonary nodules. She has had pulmonary nodules now for many years but wishes that was getting slightly worse in the right middle lobe. The patient is agreeable to repeat the CT scan in 6 months just to make sure that the process is stable. The bronchoscopies results are encouraging although close monitoring of the nodular densities still essential. 05/17/2022 the patient is here for a pulmonary follow-up visit. The patient overall has been doing well from a respiratory status. She does have intermittent cough but otherwise doing well. No significant weight loss or night sweats. The patient was curious about the other pending results of her bronchoscopy. We did review her mycobacterial cultures all negative. Again her transbronchial biopsies were consistent normal bronchoalveolar tissue. brushings and washings demonstrated some mild inflammatory changes. She did have a repeat CT scan of the chest April 2022 which we personally reviewed. It was done at [facility] and was compared to her previous 1 from 6 months ago. The actual nodular density in right middle lobe area if not well-circumscribed is irregular in nature. This seems to be in nodular component to it although is not clear if he has the same process. Still it appeared to be slightly larger measuring 12 mm 6 months ago and now 14 mm in diameter. the patient has other pulmonary nodules but the appear to be changed. Based on this increasing nodular density now measuring 1.4 cm I will request a PET scan. Also will refer the patient to be evaluated by thoracic surgery. 06/06/2022 the patient is here for a pulmonary follow-up visit. The patient continues to be fairly nervous about her upcoming visit with the thoracic surgeon. She did bring her son to this visit. We again went over the CT scan that she had back in September 2021 at [facility] and also the repeat CT scan that she had in April 2021. We did go over the bronchoscopy results demonstrating no evidence of any infection and her blind transbronchial biopsies demonstrated no abnormalities all the broncho are really tissue that being said we know that the area was felt to be increasing in size on her most recent CT scan. Therefore she underwent a PET scan. The PET scan has not been read officially as of yet we did look at it. The area of concern does not have significant FDG activity at this time that I could see. No other significant areas except for some likely physiological changes that I could appreciate. Overall her PET scan results are reassuring. This area is irregular in size and may have a component of subsolid so therefore the PET scan may be a little less accurate when he comes to these lesions. Therefore, I do believe that evaluation of thoracic surgeon will be handle and finger in about the next step. Otherwise respiratory status is stable. She denies any worsening respiratory symptoms. She denies any constitutional symptoms. 08/20/2022 The patient is here for a pulmonary follow up visit. 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 Lymphnodes are negative. Surgery is curative intent. No need for chemo or radiation. Has a CT chest at [facility] in 6 months. In the meantime she complains of a hacky cough primarily swhen laying flat, moderate in severity. Also complianing of right sided pain at the site of the surgical tube site. Looks like is healing well. Still with a small scab and some erythma and tender induration around the site. 09/06/2022 the patient is here for pulmonary follow-up visit. She still having pain at the site of the surgery. Moderate severity. She was given gabapentin but she can tolerated. I did recommend she can consider using the gabapentin at nighttime between 100-200 mg. She does have an appointment with psychiatrist is afternoon they can discuss it as far as trazodone versus gabapentin. I do believe that the in her lactic will help with her sleep and also help with her nerve does comfort after having the thoracoscopy. The area looks better. Does not look as read. Does not look as indurated. I did reassure her that looks a lot better. She is very tear for in upset about the situation with her son. Her son appears to have some degree of schizophrenia or delusional manifestations. The patient is trying to find help for her son. She denies her son having any homicidal or suicidal ideations. His son is not with her. Therefore, did call crisis and they did give me a phone number for them to call to see if they can provide her some assistance. For respiratory status patient appears to be doing well she is following closely with her exercises. She had a CT scan scheduled for 6 months time. Will follow up then. If she has any issues prior to that she is to call the office for an earlier assessment. 03/01/2023 the patient is here for a pulmonary follow-up visit. Overall the patient has been doing very well. Her cough is overall better. Her chest discomfort also better. She is sleeping better. She did recently have a CT scan of the chest that we personally reviewed. She has had her status post wedge resection and is appears to be healing well. No evidence of any recurrence. She will be following closely with thoracic surgery every 6 months for the next 5 years. We did talk about vaccines. I did recommend she follow up with the pharmacy regarding her Prevnar 20 and also did recommend she get the ER as he vaccine. She already got her flu shot. The patient is not using any inhalers at this time. She is no longer requiring the Tessalon Perles. Will follow-up in a year's time. The patient has any new or concerning symptoms prior to that she will call the office for an earlier assessment 03/06/2024 the patient is here for a pulmonary follow-up visit. Overall she is doing okay. She did have a concerned with the new pulmonary nodule in the right hemithorax. The patient did have a CT-guided biopsy at [facility]. It demonstrated just reactive cells. No significant findings. 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 She does have a CT scan coming up in a month. She is nervous about the CT scan. Breathing hopkins she does complaint of increasing dyspnea on exertion. Although she is an avid walker. She is having some knee issues that are limiting her activity. We did look at her pulmonary function studies back from 2022 demonstrating a mild obstruction. I did offer inhaler but she would like to hold off at this time. Will plan to have her come back in a year and repeat the PFTs to see if any changes. If her symptoms worsen prior to her next visit she will call for an earlier assessment. In the meantime she will follow-up with the thoracic surgeon at [facility] after her CT scan. 03/04/2025 the patient is here for pulmonary follow-up visit. Overall the patient has been doing well. Although she still complaining of right knee pain after having her total knee replacement. Breathing is well without any complications. The patient did have a recent CT scan of the chest at [facility]. She was told that everything was stable. She is going to have another CAT scan sometime in the spring of 2025. She will follow-up with thoracic surgery for that. At least from a pulmonary standpoint she is doing well we can hold off on PFTs at this time. The patient follow-up in a year. If she has any issues she can always call for further recommendations. [facility] Medical History (Updated 03/08/24 @ 19:50 by Margarito Mcwilliams MD) COPD (chronic obstructive pulmonary disease) Carcinoid tumor Adenocarcinoma of right lung Chronic cough Pulmonary nodule HTN (hypertension) Breast cancer Pulmonary nodules Surgical History (Updated 11/02/21 @ 07:51 by Millicent Alas RN) History of lumpectomy of right breast Social History Patient Tobacco Use Status: Former Tobacco user Tobacco use type: Cigarette Years Smoked: 22 years Review of Systems Const Denies fever(s) and Denies night sweats ENT Denies change in voice, Denies lip swelling, Denies mouth pain, Reports nasal congestion, Reports nasal discharge and Denies tongue swelling Card Denies chest pain Resp Reports cough GI Denies abdominal pain Musc Reports as per HPI, Reports arthralgias and Reports limited range of motion Neuro Denies Neuro-related abnormal movements Psych Denies no additional complaints Anthony/Lymph Denies easy bleeding and Denies lymphadenopathy Aller/Immun Denies lip swelling and Denies tongue swelling Physical Exam Vital Signs: Last Vital Signs Pulse 77 03/04/25 13:00 BP 112/50 L 03/04/25 13:00 Pulse Ox 97 03/04/25 13:00 Oxygen Delivery Method Room Air 03/04/25 13:00 BMI result Body Mass Index 22.4 Const General: alert Neck Neck: Yes normal visual inspection, Yes full ROM and Yes no lymphadenopathy Chest Chest palpation & inspection: normal inspection of the chest, no tenderness and No rash Resp Effort & Inspection: normal respiratory effort Auscultation: clear to auscultation bilaterally, no crackles, no rales, no rhonchi and no wheezes Cardio Rate: regular rate Rhythm: regular rhythm Heart sounds: S1 normal heart sound present and S2 normal heart sound present GI Palpation (GI): Soft to palpation and nontender Auscultation: normal bowel sounds Skin General skin exam: no rashes or lesions noted Wounds: wounds noted (right chest wound C/D/I, just mild erytheman with induration.) Extrem General: Yes no clubbing, cyanosis or edema Assessment & Plan Assessment & Plan (1) Chronic cough: Comment: better Code(s): R05.3 - Chronic cough Category: Medical (2) Adenocarcinoma of right lung: Code(s): C34.91 - Malignant neoplasm of unspecified part of right bronchus or lung Category: Medical (3) Carcinoid tumor: Code(s): D3A.00 - Benign carcinoid tumor of unspecified site Category: Medical Qualifiers: Carcinoid tumor location: lung Carcinoid tumor malignancy status: benign Qualified Code(s): D3A.090 - Benign carcinoid tumor of the bronchus and lung (4) COPD (chronic obstructive pulmonary disease): Comment: mild based on PFTs [facility] Code(s): J44.9 - Chronic obstructive pulmonary disease, unspecified Category: Medical Qualifiers: COPD type: chronic bronchitis Chronic bronchitis type: simple Qualified Code(s): J41.0 - Simple chronic bronchitis Plan F/U CT chest, [facility] consider TRAV as needed F/U 12 months Medications: New lidocaine 5% (Lidoderm) leave on most painful area for up to 12 hrs 1 patch topical DAILY 30 ea 4RF 30 days G89.12 - Acute post-thoracotomy pain Coding Level of Care Code Est Pt Level 4 (21656) Complex EM visit Add On G2211 Diagnoses Chronic cough R05.3 Adenocarcinoma of right lung C34.91 Benign carcinoid tumor of lung D3A.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
[2025-03-04 13:00] VITALS: BP 112/50; PULSE 77; O2SAT 97; BMI 22.4
--- OUTSIDE RECORDS SUMMARY | 2025-03-04 16:12 | XMS_ITS | Encounter Summary ---
Author Organization [facility] Address [address] [place] [id number] Phone Care Team Providers Care Community Arts Worker Name Role Phone Pernell Barton MD Primary Care Provider [phone] Encounter Details Date Type Department Care Team (Late st Contact Info) Description 03/22/2017 Procedure [facility] [address] [place] [address] Social History Tobacco Use Types Packs/Day Years Used Date Smoking Tobacco: Never Assessed Comments Unknown Sex and Gender Information Value Date Recorded Sex Assigned at Not on file Legal Sex Female 3:30 AM EDT Gender Identity Not on file Sexual Orientation Not on file documented as of this encounter Plan of Treatment Not on file documented as of this encounter Visit Diagnoses Not on filedocumented in this encounter Care Teams Community Arts Worker Relationship Specialty Start Date End Date Pernell Barton MD [address] [place] [id number] PCP - General Internal Medicine 02/01/17 documented as of this encounter Additional Source Comments The information contained in this document represents components of the legal health record. It is not the complete legal health record.[facility]
--- OUTSIDE RECORDS SUMMARY | 2025-03-04 16:12 | XMS_ITS | Encounter Summary ---
Author Organization [facility] Address [address] [place] [phone] Phone Care Team Providers Care Bobbin Stripper Name Role Phone Pernell Barton MD Primary Care Provider [phone] Reason for Referral * Occupational Therapy (Routine) - Closed Specialty Diagnoses / Procedures Referred By Contvernon t Referred To Contact Occupational Therapy Diagnoses Encounter for rehabilitation System, Provider Not In, PhD [address] [place] [address] Phone: tel: Referral ID Status Reason Start Date Expiration Date Visits Re quested Visits Authorized [id number] Closed 10/07/2017 04/21/2018 99 [phone] Encounter Details Date Type Department Care Team (Latest Contact Info) Description 09/30/2017 Transcribe Orders [facility] [address] [place] [address] Pernell Barton MD [address] [place] [address] Encounter for rehabilitation (Primary Dx) Social History Tobacco Use Types Packs/Day Years Used Date Smoking Tobacco: Former Smokeless Tobacco: Never Alcohol Use Standard Drinks/Week Comments Yes 1 (1 standard drink = 0.6 oz pur e alcohol) daily Comments Unknown Sex and Gender Information Value Date Recorded Sex Assigned at Not on file Legal Sex Female 3:30 AM EDT Gender Identity Not on file Sexual Orientation Not on file documented as of this encounter Plan of Treatment Scheduled Referrals Name Type Priority Associated Diagnoses Orde r Schedule Ambulatory referral to [facility] Occupational Therapy Outpatient Referral Routine Encounter for rehabilitation Ordered: 09/30/2017 documented as of this encounter Visit Diagnoses Diagnosis Encounter for rehabilitation- Primary documented in this encounter Additional Health Concerns Assessment Noted Time PHQ-2 Depression Total Score: 0 08/21/19 18 8:42 AM EDT documented as of this encounter Care Teams Bobbin Stripper Relationship Specialty Start Date End Date Pernell Barton MD [address] [place] [id number] PCP - General Internal Medicine 02/01/17 documented as of this encounter Additional Source Comments The information contained in this document represents components of the legal health record. It is not the complete legal health record.[facility]
--- OUTSIDE RECORDS SUMMARY | 2025-03-04 16:12 | XMS_ITS | Encounter Summary ---
Author Organization [facility] Address [address] [place] [address] Care Team Providers Care Warehouse Distribution Associate Name Role Phone Puma Pederosn MD Primary Care Provider Encounter Details Date Type Department Care Team (Late st Contact Info) Description 07/03/[address] [facility] [address] [place] [place] [address] Puma Pederson MD [address] [place] [address] Encounter for other general examination Social History Tobacco Use Types Packs/Day Years Used Date Smoking Tobacco: Never Assessed Comments Unknown Sex and Gender Information Value Date Recorded Sex Assigned at Not on file Legal Sex Female 4:53 PM EST Gender Identity Not on file Sexual Orientation Not on file documented as of this encounter Plan of Treatment Not on file documented as of this encounter Procedures Procedure Name Priority Date/Time Associated Diagnosis Comments CBC WITH AUTO DIFFERENTIAL Routine 07/03/2024 5:45 AM EDT Encounter for other general examination CBC AND DIFFERENTIAL Routine 07/03/2024 5:45 AM EDT Encounter for other general examination MAGNESIUM Routine 07/03/2024 5:45 AM EDT Encounter for other general examination COMPREHENSIVE METABOLIC PANEL Routine 07/03/2024 5:45 AM EDT Encounter for other general examination documented in this encounter Results * (ABNORMAL) CBC auto differential (07/03/2024 5:45 AM EDT) WBC 6.0 4.8 - 10.8 K/mcL LAB HEMETOLOGY METHOD 07/03/2024 10:51 AM [facility] RBC 4.00 3.80 - 4.80 M/mcL LAB HEMETOLOGY METHOD 07/03/2024 10:51 AM [facility] Hemoglobin 11.7 11.5 - 16.0 g/dL LAB HEMETOLOGY METHOD 07/03/2024 10:51 AM [facility] Hematocrit 37.1 35.0 - 47.0 % LAB HEMETOLOGY METHOD 07/03/2024 10:51 AM [facility] MCV 93.0 79.0 - 98.0 FL LAB HEMETOLOGY METHOD 07/03/2024 10:51 AM [facility] MCH 29.3 27.0 - 32.0 pcg LAB HEMETOLOGY METHOD 07/03/2024 10:51 AM [facility] MCHC 31.5(L) 32.0 - 37.0 g/dL LAB HEMETOLOGY METHOD 07/03/2024 10:51 AM [facility] RDW 13.9 11.0 - 15.0 % LAB HEMETOLOGY METHOD 07/03/2024 10:51 AM [facility] Platelets 296 130 - 400 K/mcL LAB HEMETOLOGY METHOD 07/03/2024 10:51 AM [facility] MPV 9.4 7.0 - 11.0 FL LAB HEMETOLOGY METHOD 07/03/2024 10:51 AM [facility] NRBC 0.0 <1.0 % LAB HEMETOLOGY METHOD 07/03/2024 10:51 AM [facility] NRBC Absolute 0.00 <0.10 K/mcL LAB HEMETOLOGY METHOD 07/03/2024 10:51 AM [facility] Neutrophils Relative 70.4 % LAB HEMETOLOGY METHOD 07/03/2024 10:51 AM [facility] Lymphocytes Relative 14.2 % LAB HEMETOLOGY METHOD 07/03/2024 10:51 AM [facility] Monocytes Relative 12.2 % LAB HEMETOLOGY METHOD 07/03/2024 10:51 AM [facility] Eosinophils Relative 2.2 % LAB HEMETOLOGY METHOD 07/03/2024 10:51 AM [facility] Basophils Relative 0.7 % LAB HEMETOLOGY METHOD 07/03/2024 10:51 AM [facility] Immature Granulocytes Relative 0.3 % LAB HEMETOLOGY METHOD 07/03/2024 10:51 AM [facility] Neutrophils Absolute 4.22 1.50 - 7.00 K/mcL LAB HEMETOLOGY METHOD 07/03/2024 10:51 AM [facility] Lymphocytes Absolute 0.85(L) 1.00 - 5.00 K/mcL LAB HEMETOLOGY METHOD 07/03/2024 10:51 AM [facility] Monocytes Absolute 0.73 0.20 - 1.00 K/mcL LAB HEMETOLOGY METHOD 07/03/2024 10:51 AM [facility] Eosinophils Absolute 0.13 0.00 - 0.50 K/mcL LAB HEMETOLOGY METHOD 07/03/2024 10:51 AM [facility] Basophils Absolute 0.04 0.00 - 0.20 K/mcL LAB HEMETOLOGY METHOD 07/03/2024 10:51 AM [facility] Immature Granulocytes Absolute 0.02 0.00 - 0.03 K/mcL LAB HEMETOLOGY METHOD 07/03/2024 10:51 AM [facility] Blood Venous blood specimen / Unknown Venipuncture / Unknown 07/03/2024 5:45 AM EDT 07/03/2024 10:12 AM EDT us Puma Pederson MD LAB BLOOD ORDERABLES Final Res ult [facility] [address] [place] [address], [place] [phone] * Magnesium (07/03/2024 5:45 AM EDT) [facility] Magnesium 2.0 1.9 - 2.6 mg/dL LAB CHEMISTRY METHOD 07/03/2024 11:29 AM EDT [facility] Blood Venous blood specimen / Unknown Venipuncture / Unknown 07/03/2024 5:45 AM EDT 07/03/2024 10:12 AM EDT us Puma Pederson MD LAB BLOOD ORDERABLES Final Res ult Performing Organization Address City/[facility]/ZIP Co de Phone Number [facility] [address] [place] [address], [place] [phone] * (ABNORMAL) Comprehensive metabolic panel (07/03/2024 5:45 AM EDT) [facility] Sodium 137 133 - 145 mmol/L LAB CHEMISTRY METHOD 07/03/2024 11:30 AM EDT [facility] Potassium 4.8 3.5 - 5.5 mmol/L LAB CHEMISTRY METHOD 07/03/2024 11:30 AM EDT [facility] Chloride 100 96 - 110 mmol/L LAB CHEMISTRY METHOD 07/03/2024 11:30 AM EDT [facility] CO2 31 21 - 32 mmol/L LAB CHEMISTRY METHOD 07/03/2024 11:30 AM EDT [facility] Anion Gap 6 3 - 11 LAB CHEMISTRY METHOD 07/03/2024 11:30 AM EDT [facility] Glucose 88 70 - 100 mg/dL LAB CHEMISTRY METHOD 07/03/2024 11:30 AM [facility] BUN 12 5 - 25 mg/dL LAB CHEMISTRY METHOD 07/03/2024 11:30 AM [facility] Creatinine 0.67 0.50 - 1.10 mg/dL LAB CHEMISTRY METHOD 07/03/2024 11:30 AM [facility] eGFR 87 >=60 mL/min/1. 73m2 LAB CHEMISTRY METHOD 07/03/2024 11:30 AM [facility] Comment:Calculation based on the Chronic Kidney Disease Epidemiology Collaboration (CKD-EPI) equation refit without adjustment for race. BUN/Creatinine Ratio 17.9 LAB CHEMISTRY METHOD 07/03/2024 11:30 AM [facility] Calcium 9.2 8.5 - 10.5 mg/dL LAB CHEMISTRY METHOD 07/03/2024 11:30 AM [facility] AST (SGOT) 21 10 - 42 unit/L LAB CHEMISTRY METHOD 07/03/2024 11:30 AM [facility] ALT (SGPT) 13 10 - 60 unit/L LAB CHEMISTRY METHOD 07/03/2024 11:30 AM [facility] Alkaline Phosphatase 115 42 - 121 unit/L LAB CHEMISTRY METHOD 07/03/2024 11:30 AM [facility] Total Protein 6.0 6.0 - 8.0 g/dL LAB CHEMISTRY METHOD 07/03/2024 11:30 AM [facility] Albumin 3.1(L) 3.2 - 5.0 g/dL LAB CHEMISTRY METHOD 07/03/2024 11:30 AM [facility] Total Bilirubin 0.5 0.0 - 1.4 mg/dL LAB CHEMISTRY METHOD 07/03/2024 11:30 AM [facility] Blood Venous blood specimen / Unknown Venipuncture / Unknown 07/03/2024 5:45 AM EDT 07/03/2024 10:12 AM EDT Puma Pederson MD LAB BLOOD ORDERABLES Final Res ult [facility] [address] [place] [address], documented in this encounter Visit Diagnoses Diagnosis Encounter for other general examination documented in this encounter Care Teams Warehouse Distribution Associate Relationship Specialty Start Date End Date Puma Pederson MD [address] [place] [phone] PCP - General Internal Medicine 07/03/24 documented as of this encounter
--- OUTSIDE RECORDS SUMMARY | 2025-03-04 16:12 | XMS_ITS | Encounter Summary ---
Author Organization [facility] Address [address] [facility] [address] [place] [address] Phone Care Team Providers Care Signal Maintenance Technician Name Role Phone Pernell Barton MD Primary Care Provider [phone] Encounter Details Date Type Department Care Team (Late st Contact Info) Description 03/22/2017 Procedure Pass [facility] [address] [place] [address] Social History Tobacco Use Types Packs/Day Years [...] on filedocumented in this encounter Care Teams Signal Maintenance Technician Relationship Specialty Start Date End Date Pernell Barton MD [address] [place] [id number] PCP - General Internal Medicine 02/01/17 documented as of this encounter Additional Source Comments The information contained in this document represents components of the legal health record. It is not the complete legal health record.[facility]
--- OUTSIDE RECORDS SUMMARY | 2025-03-04 16:12 | XMS_ITS | Encounter Summary ---
Author Organization [facility] Address [address] [facility] [address] [place] [address] Phone Care Team Providers Care Hollow Handle Bench Worker Name Role Phone Pernell Barton MD Primary Care Provider [phone] Encounter Details Date Type Department Care Team (Late st Contact Info) Description 03/22/2017 Procedure Pass [facility] [address] [place] [address] Social History Tobacco Use Types Packs/Day Years [...] on filedocumented in this encounter Care Teams Hollow Handle Bench Worker Relationship Specialty Start Date End Date Pernell Barton MD [address] [place] [address] PCP - General Internal Medicine 02/01/17 documented as of this encounter Additional Source Comments The information contained in this document represents components of the legal health record. It is not the complete legal health record.[facility]
--- OUTSIDE RECORDS SUMMARY | 2025-03-04 16:12 | XMS_ITS | Encounter Summary ---
Author Organization [facility] Address [address] [facility] [address] [place] [address] Phone Care Team Providers Care Bladder Changer Name Role Phone Pernell Barton MD Primary Care Provider [phone] Encounter Details Date Type Department Care Team (Late st Contact Info) Description 03/22/2017 Procedure Pass [facility] [address] [place] [address] Social History Tobacco Use Types Packs/Day Years [...] on filedocumented in this encounter Care Teams Bladder Changer Relationship Specialty Start Date End Date Pernell Barton MD [address] [place] [address] PCP - General Internal Medicine 02/01/17 documented as of this encounter Additional Source Comments The information contained in this document represents components of the legal health record. It is not the complete legal health record.[facility]
--- OUTSIDE RECORDS SUMMARY | 2025-03-04 16:13 | XMS_ITS | Clinical Summary ---
Author Organization [facility] [address] [place] [address] Address [address] [place] [address] Phone Care Team Providers Care Supervisor Inspection Name Role Phone Puma Pederson MD Primary Care Provider [phone] Medications traZODone (DESYREL) 50 mg tablet TAKE 1 - 2 TABLETS BY MOUTH AT BEDTIME NEEDED 07/23/2024 Active ramipriL (ALTACE) 5 mg capsule Active omeprazole (PriLOSEC) [address] capsule Take by mouth. 10/08/2023 Active metoprolol tartrate (LOPRESSOR) 25 mg tablet Active estradioL (ESTRACE) 0.01 % (0.1 mg/gram) vaginal cream Active cholecalciferol (VITAMIN D-3) 50 mcg (2,000 unit) capsule Take by mouth. Active acetaminophen (Tylenol Arthritis Pain) 650 mg 8 hr tablet Take by mouth. Active Social History Tobacco Use Types Packs/Day Years Used Date Smoking Tobacco: Never Assessed Comments Unknown Sex and Gender Information Value Date Recorded Sex Assigned at Not on file Legal Sex Female 4:53 PM EST Gender Identity Not on file Sexual Orientation Not on file Plan of Treatment Health Maintenance Due Date Last Done Comments DTaP,Tdap,and Td Vaccines (1 - Tdap) 07/15/1959 Zoster Vaccines (1 of 2) 07/15/1959 Falls Risk Assessment 05/21/2023 Medicare Annual Wellness Visit 05/21/2023 Osteoporosis Screening (Bone Density Screening) 05/21/2023 Social Influencers of Health Screening 05/21/2023 Depression Screening 04/22/2024 COVID-19 Vaccine ( season) 2024 01/23/2024, 02/03/2023, 10/03/2022, Additional history exists Influenza Vaccine (#1) 2024 4, 01/09/2023, 02/02/2022, Additional history exists RSV Immunization Adult Patients Completed 04/18/2023 Pneumococcal Vaccine: 50+ Years Completed 06/06/2023, 02/15/2016 HIB Vaccines Aged Out No longer eligi ble based on patient's age to complete this topic HPV Vaccines Aged Out No longer eligi ble based on patient's age to complete this topic Hepatitis A Vaccines Aged Out No long er eligible based on patient's age to complete this topic Hepatitis B Vaccines Aged Out No long er eligible based on patient's age to complete this topic IPV Vaccines Aged Out No longer eligi ble based on patient's age to complete this topic MMR Vaccines Aged Out No longer eligi ble based on patient's age to complete this topic Meningococcal ACWY Vaccine Aged Out N o longer eligible based on patient's age to complete this topic Meningococcal B Vaccine Aged Out No l onger eligible based on patient's age to complete this topic RSV Immunization Patients Under 20 months Aged Out No longer eligible based on patient's age to complete this topic Varicella Vaccines Aged Out No longer eligible based on patient's age to complete this topic Insurance MEDICARE [facility] Care Teams Supervisor Inspection Relationship Specialty Start Date End Date Puma Pederson MD [address] [place] [phone] PCP - General Internal Medicine 07/03/24
--- OUTSIDE RECORDS SUMMARY | 2025-03-04 16:13 | XMS_ITS | Continuity of Care Document ---
Author Organization [facility] [address] [place] [address] Phone [phone] Care Team Providers Care Sand Mill Grinder Name Role Phone Pernell Barton M.D. Care Team Information Receive r [phone] Problems Active Problems Provider Date Multinodular goiter Emily Orozco M.D. Onset: 03/12/2022 Osteoporosis Emily Orozco M.D. Ons et: 03/12/2022 Adrenal adenoma Emily Orozco M.D. Ons et: 03/12/2022 Diverticulosis of colon with out diverticulitis Emily Orozco M.D. Onset: 03/12/2022 Carcinoma of breast Emily Orozco M.D. Onset: 03/12/2022 Basal cell carcinoma of skin Emily wray M.D. Onset: 03/12/2022 Squamous cell carcinoma of skin Emily Browne M.D. Onset: 03/12/2022 Venous insufficiency of leg Emily hernandez M.D. Onset: 03/12/2022 Gastroesophageal reflux disease Emily Browne M.D. Onset: 03/12/2022 Multiple nodules of lung Emily Orozco M.D. Onset: 03/12/2022 Malignant melanoma of skin Emily hobbs M.D. Onset: 03/19/2022 Stricture of esophagus Shakir Voss Onset: 11/09/2022 Adenocarcinoma of lung Shakir Voss Onset: 11/09/2022 Social History Type Date Description Comments Sex Female Sex Unknown Lives With Alone ETOH Use Consumes 1 glass of wine per day Tobacco Use Start: Unknown End: Unknown Patient is a former smoker Quit in 1997 Allergies and adverse reactions Active Allergies Criticality Reaction Severity Comments Date Omnipaque Unable to assess criticality 03/19/2022 Medications Active Medications SIG Qnty Indications Ordering Provider Date [id number] Capsules Take 1 capsule daily Pernell Barton M.D. Estradiol0.1mg/GM Cream Insert 1 Gram Vaginally 1 Time Every Week Pernell Barton M.D. Multivitamin Adults 50+Adlt 50+ Tablets 1 by mouth every day Emily Orozco M.D. Vitamin [id number] (1999) Capsules 1 by mouth every day Emily Orozco M.D. Tylenol 8 Hour Arthritis [id number] Tablets ER 2 tabs by mouth twice a day as needed Emily Orozco M.D. Metoprolol [id number] Tablets Take 1/2 Tablet By Mouth Twice A Day Pernell Barton M.D. [id number] Capsules DR 1 by mouth once a day Unknown Vital Signs Date Vital Result Comment 06/12/2024 1:09pm BP Systolic 114 mmHg BP Diastolic 62 mmHg Height 67 inches 5'7 Weight 145.12 lb BMI (Body Mass Index) 22.7 kg/m2 Results Test Acquired Date Facility Test Result H/L Range Note Comp. Metabolic Panel (14) 12/11/2023 [facility] Glucose 94 mg/dL 70-99 BUN 16 mg/dL 8-27 Creatinine 0.69 mg/dL 0.57-1.0 0 eGFR 86 mL/min/1.7 3 >59 BUN/Creatinine Ratio 23 12-28 Sodium 142 mmol/L 134-144 Potassium 4.7 mmol/L 3.5-5.2 Chloride 102 mmol/L 96-106 Carbon Dioxide, Total 27 mmol/L 20-29 Calcium 9.8 mg/dL 8.7-10.3 Protein, Total 6.8 g/dL 6.0-8.5 Albumin 4.2 g/dL 3.7-4.7 Globulin, Total 2.6 g/dL 1.5-4.5 Bilirubin, Total 0.3 mg/dL 0.0-1 .2 Alkaline Phosphatase 149 IU/L High 44-121 Ast (Sgot) 22 IU/L 0-40 Alt (SGPT) 9 IU/L 0-32 CBC With Differential/Plat elet 12/11/2023 [facility] WBC 5.6 x10E3/uL 3.4-10.8 RBC 4.86 x10E6/uL 3.77-5.2 8 Hemoglobin 14.1 g/dL 11.1-15. 9 Hematocrit 44.3 % 34.0-46. 6 MCV 91 fL 79-97 MCH 29.0 pg 26.6-33. 0 MCHC 31.8 g/dL 31.5-35. 7 RDW 13.3 % 11.7-15. 4 Platelets 369 x10E3/uL 150-450 Neutrophils 65 % Not Estab. Lymphs 21 % Not Estab. Monocytes 11 % Not Estab. Eos 2 % Not Estab. Basos 1 % Not Estab. Immature Cells TNP Neutrophils (Absolute) 3.6 x10E3/uL 1.4-7.0 Lymphs (Absolute) 1.2 x10E3/uL 0.7-3.1 Monocytes(Absol u te) 0.6 x10E3/uL 0.1-0.9 Eos (Absolute) 0.1 x10E3/uL 0.0-0.4 Baso (Absolute) 0.1 x10E3/uL 0.0-0.2 Immature Granulocytes 0 % Not Estab. Immature Grans (Abs) 0.0 x10E3/uL 0.0-0.1 NRBC TNP Hematology Comments: TNP Vitamin D, 25-Hydroxy 12/11/2023 [facility] Vitamin D, 25-Hydroxy 46.7 ng/mL 30.0-100 .0 1 TSH Rfx on Abnormal to Free T4 12/11/2023 [facility] TSH Rfx on Abnormal to Free T4 1.660 uIU/mL 0.450-4. 500 Comprehensive Metabolic Panl 11/09/2022 [facility] Glucose 120 mg/dL High (70-99) BUN 20 mg/dL (8-23) Creatinine 0.8 mg/dL (0.5-1.0 ) Sodium 141 mmol/L (133-145 ) Potassium 4.9 mmol/L (3.6-5.2 ) Chloride 103 mmol/L (98-107) Bicarbonate 29 mmol/L (22-29) Anion Gap 9 (4-17) Albumin 4.3 GM/DL (3.4-4.8 ) Calcium 9.6 mg/dL (8.6-10. 5) Bilirubin,Total 0.2 mg/dL (0-1.2 ) Total Protein 6.4 GM/DL (6.2-8.2 ) Ag Ratio 2.0 Ast 28 U/L (0-32) Alk Phos 141 U/L High (35-104) Alt 14 U/L (0-33) Estimated GFR Creatinine 76 ML/MIN/1.7 3M2 2 Complete Abc With Diff 11/09/2022 [facility] WBC 7.1 K/MM3 (4.0-11. 0) RBC 4.82 M/MM3 (4.20-5. 40) HGB 14.0 GM/DL (11.7-15 .5) HCT 45.7 % (35.7-45 .8) MCV 94.8 FL (80.0-10 0.0) MCH 29.0 pg (27.0-34 .0) MCHC 30.6 g/dL Low (33.0-37 .0) PLT 327 K/MM3 (150-460 ) RDW-SD 50.9 FL High (<47.0) MPV 9.9 FL (9.4-12. 4) Automated NRBC 0.0 #/100WBC'S Abs. NRBC 0.0 K/MM3 Neut # 5.0 K/MM3 (1.3-7.0 ) Lymph # 1.3 K/MM3 (0.8-3.1 ) [place]# 0.6 K/MM3 (0.4-0.9 ) Eo # 0.1 K/MM3 (0.0-0.4 ) Baso # 0.0 K/MM3 (0.0-0.1 ) Abs. Imm Gran 0.0 K/MM3 Neut 70.7 % (44-76) Lymph 18.9 % (15-43) Monocyte 8.6 % (4.5-10. 5) Eo 1.3 % (0-6) Baso 0.4 % (0-2) Imm Gran 0.1 % TSH With Reflex To FT4 11/09/2022 [facility] TSH With Reflex To FT4 1.16 uIU/mL (0.4-4.2 ) 25Oh Vitamin D 11/09/2022 [facility] 25Oh Vitamin D 56.1 NG/ML High (20-50) N-Telopeptide Cross Links, Urine 04/18/2022 [facility] Cross Linked N-Telopeptides 624 3 Creat, Urine 117.1 4 N-Telopeptide/C r eat Ratio 60 5 NTX Interpretaion Comment 6 Bone Alkaline Phosphatase 04/18/2022 [facility] Bone Alkaline Phosphatase 25.4 7 Xray 11/16/2021 [facility] [address] [place], [place] [id number] [phone] Dexa Bone Density Study Axial Skeleton <pending> 1 Vitamin D deficiency has been defined by the [place] of Medicine and an Endocrine Society practice guideline as a level of serum 25-OH vitamin D less than 20 ng/mL (1,2). The Endocrine Society went on to further define vitamin D insufficiency as a level between 21 and 29 ng/mL (2). 1. IOM ([place] of Medicine). 2010. Dietary reference intakes for calcium and D. [place]: The National Academies Press. 2. Sammie MF, Guy CHAVEZ, Cirilo OLIVIER, et al. Evaluation, treatment, and prevention of vitamin D deficiency: an Endocrine Society clinical practice guideline. JCEM. 2010; 96(7):1911-30. 2 Creatinine based est imated glomerular filtration (eGFR) in adults is calculated using the National Kidney Foundation recommended 2020 CKD-EPI equation. Estimates GFR from serum creatinine, age and sex. 3 Reference range: Not Estab. Unit: nmol BCE [facility] [address] [place] [address] 4 Reference range: Not Estab. Unit: mg/dL [facility], [address] [place] [address], [place] [address] 5 Reference range: 0 t o 89 Unit: nM BCE/mM Cr 6 (NOTE) The N-telopeptide and Creatinine are used to calculate the N-telo/Creat. Ratio which is referred to as NTx . Suggested guidelines for the clinical use of NTx are as follows: 1. Menopausal Women not on Hormone Replacement Therapy (HRT): Women with a baseline NTx value >38 are at significant risk for a decrease in bone mineral density (BMD) after 1 year compared to women on HRT. The probability of a decline in BMD increases with NTx value as follows: (1): Baseline NTx Probability of Decrease in BMD 18- 38 1.4 p EQ 0.28 38- 51 2.5 p EQ 0.03 51- 67 3.8 p EQ 0.0006 67-188 17.3 p EQ 0.0001 2. Menopausal Women Receiving Antiresorptive Therapy: The probability that treatment is effective after three months is increased when the measured NTx value is <or EQ 38 nM BCE/mM ASSISTED LIVING NURSING DIRECTOR, or NTx has decreased >or EQ 30% from baseline.[1] 3. Patients with Paget's Disease of Bone: The probability that treatment is effective after one month is increased when the measured NTx value is within the reference range, or NTx has decreased >or EQ 30% from baseline.[2] 1. Luana CH, Inman NH, Jonathan GS, et al. Am J Med, 102:29-37,1997. (1):M757, 1996. 2. Bone H, Marco J, et al. J Bone Min Res.11(1):M757,1995 [place] [address] 7 Unit: ug/L (NOTE) Premenopausal Women: 6.0 - 22.7 Postmenopausal Women: 8.1 - 31.6 [place] [address] Procedures Date Code Description Status 12/11/2023 70715 Collection Of Venous Blood B y Venipuncture Completed 11/09/2022 92959 Collection Of Venous Blood B y Venipuncture Completed Medical Devices Description No Information Available Encounters Type Date Location Provider Dx Diagnosis Office Visit 06/12/2024 1:00p Main Office Emily Orozco M.D. E04.2 Nontoxic multinodular goiter M81.0 Age-related osteopor osis w/o current pathological fracture Assessments Date Code Description Provider 06/12/2024 E04.2 Nontoxic multinodular goiter Emily Orozco M.D. 06/12/2024 M81.0 Age-related oste oporosis without current pathological fracture Emily Orozco M.D. Plan of Treatment Future Appointment(s):* 04/30/2025 1:15 pm - Emily Orozco M.D. at Main Office 03/19/2022 - Emily Orozco M.D.* E04.2 Nontoxic multinodular goiter * M81.0 Age-related osteoporosis without current pathological fracture * R74.8 Abnormal level of alkaline phosphatase Functional Status Description No Information Available Mental Status Description No Information Available Referrals Description No Information Available
--- OUTSIDE RECORDS SUMMARY | 2025-03-04 16:13 | XMS_ITS | Patient Health Record ---
[facility] Address [address] [place] [address] Care Team Providers Care Field Cane Scaler Helper Name Role Phone Jamshid MORALES, Elizabeth Primary Care Provider Christian Sierra Unavailable [phone] Allergies Allergen (clinical drug ingredient) Drug/Non Drug Allergy documented on EMR Reaction Allergy Type Onset Date Status morphine Morphine nausea Drug Allergy Active Reason For Referral No Information Medications Medication SIG (Take, Route, Fr equency, Duration) Notes Start Date End Date Status Vitamin D 1000 UNIT 1 tablet Orally Once a day; Duration: 30 day(s) Active Aleve prn Active Multivitamins as directed Orally Active Fish Oil 1000 MG 1 capsule with a kathy l Orally Once a day; Duration: 30 day(s) Active Nitro-Bid 2 % as directed bid Transdermal bid 04/2012 Active Problems Problem Type SNOMED Code ICD Code Onset Dates Problem Status W/U Status Risk Notes Problem Hallux valgus (018780595) Hallux Valgus (735.0) Active confirmed Problem Hammer toe (311793686) Hammer toe (735.4) Active confirmed Problem Ingrowing nail (983912130) Ingrowing Nail (703.0) Active confirmed Problem Onychomycosis (986603875) Onychomycosis (110.1) Active confirmed Problem Pain in limb (96927202) Pain in Limb (729.5) Active confirmed Problem Verruca plantaris (82707744) Verruca Plantaris (078.19) Active confirmed Plan Of Treatment Pending Test Test Name Order Date [id number] NAIL, 6 OR MORE 12/17/2011 [id number] NAIL, 6 OR MORE 02/25/2012 [id number] NAIL, 6 OR MORE 05/19/2012 [id number] Destruction, 1-14 05/19/2012 [id number] Destruction, 1-14 02/25/2012 [id number] Plate 05/19/2012 Insurance Providers Payer Name Payer Address Payer Phone Subscriber Number Group Number Insured Name Patient Relationship to Insured Coverage Start Date Coverage End Date Medicare National [employer] [address] [facility] [place] [address] [id number] Juanita Reid Self - patient is the insured [facility] [address] [place] [address] [id number] Juanita Reid Self - patient is the insured Medical (General) History Medical History History ICD Code back, hip, knee pain cancer - breast cataracts diverticulosis reflux sinus conditions measles chicken pox Surgical History Surgery Date(Month/Year) breast surgery 05/2006 hysterectomy 1971
--- OUTSIDE RECORDS SUMMARY | 2025-03-04 16:13 | XMS_ITS | Encounter Summary ---
Author Organization [facility] Address [address] [place] [address] Care Team Providers Care Investment Underwriter Name Role Phone Puma Pederson MD Primary Care Provider [phone] Encounter Details Date Type Department Care Team (Late st Contact Info) Description 07/08/2024 Lab Requisition [facility] Lab [address] [place] [address] Puma Pederson MD [address] [place] [address] Encounter for other general examination Social History [...] Procedure Name Priority Date/Time Associated Diagnosis Comments SEDIMENTATION RATE Routine 07/08/2024 3: 05 PM EDT Encounter for other general examination C-REACTIVE PROTEIN Routine 07/08/2024 3: 05 PM EDT Encounter for other general examination URIC ACID Routine 07/08/2024 3:05 PM EDT Encounter for other general examination documented in this encounter Results * Uric acid (07/08/2024 3:05 PM EDT) Uric Acid 3.5 3.1 - 7.8 mg/dL LAB CHEMISTRY METHOD 07/08/2024 6:15 PM EDT [facility] Blood Venous blood specimen / Unknown Venipuncture / Unknown 07/08/2024 3:05 PM EDT 07/08/2024 3:29 PM EDT Puma Pederson MD LAB BLOOD ORDERABLES Final Res ult Performing Organization Address [facility]/State/ZIP Co de Phone Number [facility] [address] [place] [address], [place] [phone] * Sedimentation rate (07/08/2024 3:05 PM EDT) Sed Rate 22 0 - 30 mm/hr LAB HEMETOLOGY METHOD 07/08/2024 3:52 PM EDT [facility] Blood Venous blood specimen / Unknown Venipuncture / Unknown 07/08/2024 3:05 PM EDT 07/08/2024 3:29 PM EDT Puma Pederson MD LAB BLOOD ORDERABLES Final Res ult Performing Organization Address [facility]/ZIP Co de Phone Number [facility] [address] [place] [address], [place] [phone] * (ABNORMAL) C-reactive protein (07/08/2024 3:05 PM EDT) C-Reactive Protein 16.80(H) <=0.50 mg/dL LAB CHEMISTRY METHOD 07/08/2024 6:15 PM EDT [facility] Blood Venous blood specimen / Unknown Venipuncture / Unknown 07/08/2024 3:05 PM EDT 07/08/2024 3:29 PM EDT Puma Pederson MD LAB BLOOD ORDERABLES Final Res ult Performing Organization Address City/[facility]/ZIP Co de Phone Number [facility] [address] [place] [address], [place] [phone] documented in this encounter Visit Diagnoses Diagnosis Encounter for other general examination documented in this encounter Care Teams Investment Underwriter Relationship Specialty Start Date End Date Puma Pederson MD [address] [place] [address] PCP - General Internal Medicine 07/03/24 documented as of this encounter
--- OUTSIDE RECORDS SUMMARY | 2025-03-04 16:14 | XMS_ITS | Encounter Summary ---
Author Organization [facility] Address [address] [facility] [address] [place] [address] Phone Care Team Providers Care Foot Orthopedist Name Role Phone Pernell Barton MD Primary Care Provider [phone] Encounter Details Date Type Department Care Team (Late st Contact Info) Description 03/20/2017 Procedure Pass [facility] [address] [place] [address] Social History Tobacco Use Types Packs/Day Years Used Date Smoking Tobacco: Former Smokeless Tobacco: Never Comments Unknown Sex and Gender Information Value Date Recorded Sex Assigned at Not on file Legal Sex Female 3:30 AM EDT Gender Identity Not on file Sexual Orientation Not on file documented as of this encounter Plan of Treatment Not on file documented as of this encounter Visit Diagnoses Not on filedocumented in this encounter Care Teams Foot Orthopedist Relationship Specialty Start Date End Date Pernell Barton MD [address] [place] [address] PCP - General Internal Medicine 02/01/17 documented as of this encounter Additional Source Comments The information contained in this document represents components of the legal health record. It is not the complete legal health record.[facility]
--- OUTSIDE RECORDS SUMMARY | 2025-03-04 16:15 | XMS_ITS | Encounter Summary ---
Author Organization [facility] Address [address] [address] Phone Care Team Providers Care Parachute Inspector Name Role Phone Pernell Barton MD Primary Care Provider [phone] Encounter Details Date Type Department Care Team (Late st Contact Info) Description 07/18/2017 Procedure Pass [facility] Cardiac Psychiatric Clinical Nurse Specialist [address] [place] [address] Social History Tobacco Use Types Packs/Day Years [...] on filedocumented in this encounter Care Teams Parachute Inspector Relationship Specialty Start Date End Date Pernell Barton MD [address] [place] [address] PCP - General Internal Medicine 02/01/17 documented as of this encounter Additional Source Comments The information contained in this document represents components of the legal health record. It is not the complete legal health record.[facility]
--- OUTSIDE RECORDS SUMMARY | 2025-03-04 16:15 | XMS_ITS | Data Portability ---
Author Organization [facility] Pain Managem jose angel, [facility] Address [address] [address] [place] [address] Care Team Providers Care Director Mobile Name Role Phone BEVERLEY BURDEN Primary Care Provider Assessment Encounter Date Assessment Date Assessment LastModified by Organization Details LastModified Time 07/30/2016 07/30/2016 Khurram Mott is a 76 year old woman with complaints of low back pain radiating into right lower extremity. On exam , she has pain on flexion and a positive straight leg raising test on the right. She has had a course of physical therapy which she feels aggravated her symptoms. She is doing a home exercise program with persistent pain. MRI Lumbar spine shows Lumbar dextroscoliosis, L2 level lumbar spondylosis and mild L4-L5 anterolisthesis with stenosis overall most pronounced at the L4-L5 level. I recommend a trial of lumbar epidural steroid injection under fluoroscopic guidance. The risks and benefits of the procedure were reviewed in detail. She wishes to proceed. An appointment has been booked. She needs a route driver coin machines on the day of the procedure [email or web address] Not available 07/31/2016 08:51:42 08/07/2016 08/07/2016 Khurram Mott is a 76 year old woman with complaints of low back pain radiating into right lower extremity. On exam , she has pain on flexion and a positive straight leg raising test on the right. She has had a course of physical therapy which she feels aggravated her symptoms. She is doing a home exercise program with persistent pain. MRI Lumbar spine shows Lumbar dextroscoliosis, L2 level lumbar spondylosis and mild L4-L5 anterolisthesis with stenosis overall most pronounced at the L4-L5 level. She is here for a trial of lumbar epidural steroid injection under fluoroscopic guidance. The risks and benefits of the procedure were reviewed in detail. She wishes to proceed. She needs to follow up in four weeks. [email or web address] Not available 08/07/2016 14:03:23 08/23/2016 08/23/2016 Khurram Mott is a 76 year old woman with complaints of low back pain radiating into right lower extremity. She is here for a follow up after a trial of lumbar epidural steroid injection under fluoroscopic guidance. She reports some pain benefit for two weeks with return of pain back to baseline. On exam , she has pain on flexion and a positive straight leg raising test on the right. She has had a course of physical therapy which she feels aggravated her symptoms. She is doing a home exercise program with persistent pain. MRI Lumbar spine shows Lumbar dextroscoliosis, L2 level lumbar spondylosis and mild L4-L5 anterolisthesis with stenosis overall most pronounced at the L4-L5 level. I recommend a repeat lumbar epidural steroid injection under fluoroscopic guidance. The risks and benefits of the procedure were reviewed in detail. She wishes to proceed. An appointment has been booked. She needs a route driver coin machines on the day of the procedure. I will also refer her for a neurosurgical opinion with Dr. Yasir Crews at [facility]. [email or web address] Not available 08/23/2016 13:12:02 11/01/2016 11/01/2016 Khurram Mott is a 76 year old woman with complaints of low back pain radiating into right lower extremity. She is here for a follow up after a trial of lumbar epidural steroid injection under fluoroscopic guidance. She reports good ongoing pain benefit. Her main complaint today is swelling in herleft leg. On exam , she has good range of motion of her left foot and ankle. Swelling is noted in left ankle and foot. No color changes are seen. I will refer her for a vascular surgery opinion . [email or web address] Not available 11/18/2016 18:04:18 Plan of Treatment Reminders Order Date Submit Date Provider Last Modified By Organization Details Last Modified Time Details Appointments None recorded . Lab None recorded . Referral vascular surgeon referral 2016 017 luz maria [facility]upp [facility]), [address] [place], [address], 7 18:19:06 Procedures None recorded . Surgeries None recorded . Imaging None recorded . Medication Orders None recorded . Patient TargetsNo targets recorded. Patient Instructions Encounter Date Encounter Id Patient Instructions Last Modified By Organization Details Last Modified Time 07/30/2016 [id number] She was advised to continue with activities as tolerated. [email or web address] Not available 07/31/2016 08:52:00 08/07/2016 [id number] She was advised to continue with activities as tolerated. [email or web address] Not available 08/07/2016 14:02:52 08/23/2016 [id number] She was advised to continue with activities as tolerated. [email or web address] Not available 08/23/2016 13:10:09 11/01/2016 [id number] She was advised to continue with activities as tolerated. [email or web address] Not available 11/18/2016 18:01:52 Reason for Referral Vascular Surgeon Referral fo r Varicose veins of lower extremity Referring Physician: Bob Magaña, Pain Management, Encounter Date: 11/01/2016 Results Created Date Observation Date Name Description Value Unit Range Abnormal Flag Note LastModifiedBy Organization Detail LastModifiedTime 11/14/19 17 11/12/2016 vascu lar exami tonya n (PROC ) No observ ation record ed. [email or web address] Not Available 10/21 10:12:37 Result Notes None recorded. Problems Name Problem SNOMED Code Status Onset Date Resolution Date Notes Provider Name and Address Organization Details Recorded Time Varicose veins of lower extremity 25747494 Active 2016 Bob ohbbs MD [address] , [address], [place], [address], [place] [facility] 7 18:01:56 Peripheral edema 279638292 Active 2016 Bob hobbs MD [address] , [address], [place], [address], [place] [facility] 7 18:01:58 Lumbosacral radiculitis 43479383 Active 2016 Bob hobbs MD [address] , [address], [place], [address], [place] [facility] 7 18:02:05 Spinal stenosis of lumbar region 04157906 Active 2016 Bob hobbs MD [address] , [address], [place], [address], [place] [facility] 7 18:02:07 Displacement of lumbar intervertebral disc without myelopathy 13571341 Active 2016 Bob hobbs MD [address] , [address], [place], [address], [place] [facility] 7 18:02:09 Problem Notes None recorded. Procedures Surgical History Date Name Laterality Status Provider Name and Address Organization Details Recorded Time 08/08/19 17 Lumbar Epidural steroid injection under fluoroscopic guidance completed Bob Magaña MD [address] , [address], [place], [address], [place] [facility] 08/07/2016 14:02:08 Hysterectomy completed Rachel Block [place] [facility] 07/30/2016 14:18:15 Lumpectomy completed Rachel Block [place] [facility] 07/30/2016 14:18:29 Imaging Results None recorded. Procedure Notes None recorded. Medical Equipment None Reported. Allergies Allergen ID Allergen Name Allergen Category Reaction Reaction Severity Criticality Documentation Date Start Date Code Code System Note Provider Name and Address Organization Details Recorded Time 87790 morphine medicatio n nausea Not available Not available 07/30/2016 7052 RxNorm Rachel Mcgeezier [facility], [place] [facility] 7 14:08:40 Medications Name Sig Start Date Stop Date Status Note LastModified by Organization Details LastModified Time tramadol 50 mg tablet active Not Available Not Available No t Available amitriptyli ne 25 mg tablet active Not Available Not Available Not Available dexamethaso ne 4 mg tablet 07/30 completed Not Available Not Available Not Available ramipril 1.25 mg capsule active Not Available Not Available Not Available Estrace 0.01% (0.1 mg/gram) vaginal cream USE 1 GM VAGINALLY DAILY AT BEDTIME active Not Available Not Available No t Available omeprazole active Not Available Not Av ailable Not Available Prevnar 13 (PF) 0.5 mL intramuscul ar syringe TO BE ADMINISTE RED BY PHARMACIS T FOR IMMUNIZAT ION 07/30 completed Not Available Not Available Not Available Probiotic daily active Not Available Not Diane ilable Not Available Vitamin D3 50 mcg (2,000 unit) capsule Daily active Not Available Not Available Not Available Multi Vitamin active Not Available Not Available Not Available Vitals Date Recorded Heart rate Oxygen saturation Oxygen saturation in Arterial blood by Pulse oximetry Body height Body weight Body mass index (BMI) Systolic And Diastolic Provider Name and Address Organization Details Last Updated DateTime 7 78 /min 97 % 97 % 170.18 cm 24002.4 9 g 22.9 kg/m2 171/79 mm[Hg] Rachel Block [place] [facility] 7 14:05:55 Date Recorded Body height Heart rate Oxygen saturation Oxygen saturation in Arterial blood by Pulse oximetry Systolic And Diastolic Provider Name and Address Organization Details Last Updated DateTime 7 170.18 cm 87 /min 98 % 98 % 151/87 mm[Hg] Rachel Block [place] [facility] 7 13:37:47 Date Recorded Body height Oxygen saturation Oxygen saturation in Arterial blood by Pulse oximetry Heart rate Systolic And Diastolic Provider Name and Address Organization Details Last Updated DateTime 7 170.18 cm 96 % 96 % 92 /min 134/74 mm[Hg] Rachelshahram McgeeBlock [place] - [facility] 7 10:40:43 Date Recorded Body height Heart rate Oxygen saturation Oxygen saturation in Arterial blood by Pulse oximetry Systolic And Diastolic Provider Name and Address Organization Details Last Updated DateTime 7 170.18 cm 87 /min 96 % 96 % 159/69 mm[Hg] Rachel Block [place] - [facility] 7 13:13:12 Social History Question Answer Notes LastModified by Organizat ion Details LastModified Time Tobacco Smoking Status Former Smoker Quit x 17 years Not Available [employer] 02/05/2020 03:16:11 Which Illicit Or Recreational Drugs Have You Used? No [id number] Information not available 02/05/2020 Education 12 [email or web address] Information no t available 07/30/2016 Live Alone Or With Others? With Others Son Information not available 07/30/2016 Marital Status Informatio n not available 07/30/2016 How Many Years Have You Smoked Tobacco? 40 [id number] Information not available 02/05/2020 Sex: Unknown Functional Status Question Answer Note LastModified by Organization D etails LastModified Time What is your level of alcohol consumption? Moderate [id number] Information not available 02/05/2020 Are you currently employed? No [id number] Information not available 02/05/2020 Mental Status None recorded. Family History Relationship Description Onset Age of this Age Resolved Age Notes LastModified by Organization Details LastModified Time Sister Kidney disease Not available 2016 14:14:10 Sister Malignant neoplastic disease Breast Cancer Not available 07/30/2016 14:14:38 Medical History Condition Response Cancer Y Arthritis Y Hypertension Y COPD Y GERD/Reflux Y Gynecological HistoryNo gynecological history recorded. Obstetrics History GPAL:G 0 P 0 0 0 0 Past Encounters Encounter ID Performer Location Encounter Start Date Encounter Closed Date Diagnosis/Indication Diagnosis SNOMED-CT Code Diagnosis ICD10 Code Diagnosis IMO Codes Diagnosis Note [id number] Bob Magaña MD PAIN OFFICE [address] [place] [address] 07/30/2016 13:44:42 07/31/2016 08:59:57 Lumbosacral radiculitis 36601732 M54.17 Spinal randa nosis of lumbar region 35018479 M48.06 Displaceme nt of lumbar intervertebral disc without myelopathy 37248700 M51.26 Lumbosacra l spondylosis without myelopathy 32599124 M47.817 [id number] Bob Magaña MD PAIN OFFICE [address] [place] [address] 08/07/2016 13:27:22 08/08/2016 13:31:01 Lumbosacral radiculitis 63447528 M54.17 Spinal randa nosis of lumbar region 00864348 M48.06 Displaceme nt of lumbar intervertebral disc without myelopathy 97522366 M51.26 Lumbosacra l spondylosis without myelopathy 03416337 M47.817 [id number] Bob Magaña MD PAIN OFFICE [address] [place] [address] 08/23/2016 10:29:02 08/23/2016 15:23:19 Lumbosacral radiculitis 87319782 M54.17 Spinal randa nosis of lumbar region 91630746 M48.06 Displaceme nt of lumbar intervertebral disc without myelopathy 81942656 M51.26 Lumbosacra l spondylosis without myelopathy 65487477 M47.817 [id number] Bob Magaña MD PAIN OFFICE [address] [facility] [address] [facility] [place] [address] 11/01/2016 12:57:45 11/18/2016 18:19:06 Varicose veins of lower extremity 87664926 I83.892 Peripheral edema 1864776 00 R60.9 Lumbosacra l radiculitis 03524123 M54.17 Spinal randa nosis of lumbar region 52129082 M48.06 Displaceme nt of lumbar intervertebral disc without myelopathy 42331092 M51.26 Lumbosacra l spondylosis without myelopathy 01945015 M47.817 Health Concerns Section Related Observation LastModified by Organization Detai ls LastModified Time None Recorded Concern Status LastModified by Organization Details LastModified Time None Recorded Advance Directives Directive None Recorded Payers Insurance Date Sequence Insurance Name Policy Number Policy Hernandez Covered Member ID Hernandez Member ID Guarantor Name 12/02/2016 1 [place] [employer] Khurram Mott [id number] Khurram Mott 12/01/2016 2 [employer] [facility] [place] IN[employer]ITY [employer] (INDEMNITY) [id number] Khurram Mott [id number] Khurram Mott Notes Date Note Type Note Provider Name and Address Organization Details Recorded Time 7 text/html Pain Management L-spineReported by PatientHPIFor severity, patient reportsworseningbut reportscurrent pain level 5/10andworst pain 10/10. For duration, patient reportsconstant. For onset/timing, patient reportssudden. For context, patient reportscannot identify. For alleviating factors, patient reportsheat,ice,rest, andlying down. For aggravating factors, patient reportsstandingandwalkin g. For associated symptoms, patient reportsno weakness,no bladder compromise, andno bowel compromise. For radiation, patient reportsright le. For work related, patient reportsno. For adl (activities of daily living), patient reportswalking,sweeping, andmopping. For previous surgery, patient reportsnone. For previous injections, patient reportsnone. For previous outdoor emergency care technician, patient reportsnone. For location, (khurram mott is a 76 year old woman with complaints of low back pain radiating into right lower extremity. the pain started in march 2016 and is becoming greater.). For quality, (she describes the pain as a sharp stabbing pain in her right buttock region and radiates down into the right leg. she has muscle cramps in her calf and occasional numbness and tingling.). For prior imaging, (mri lumbar spine shows lumbar dextroscoliosis, l2 level lumbar spondylosis and mild l4-l5 anterolisthesis with stenosis overall most pronounced at the l4-l5 level.). For previous pt, (she had physical therapy at [facility] with some pain benefit.). Bob Magaña MD [address] [facility] , [address], [place], [address], [facility] Pain Management 07/31/2016 10:56:47 7 text/html She is here for a lumbar epidural steroid injection under fluoroscopic guidance Bob Magaña MD [address] , [address], [place], [address], [facility] - Pain Management 08/09/2016 11:18:32 7 text/html She is here for a follow up after a trial of lumbar epidural steroid injection under fluoroscopic guidance. She states she has increased pain the next day after the injection. She states the pain subsided and her pain improved and she had good days for two weeks. Presently her pain is back to baseline. She is complaining of pain in her right buttock region which radiates into her right leg with numbness and tingling. She has no history of bladder or bowel incontinence. Bob Magaña MD [address] , [address], [place], [address], [facility] - Pain Management 09/03/2016 08:56:03 7 text/html She is here for a follow up. She is complaining of edema in her left foot and ankle. She states her low back pain is not an issue at present. Her primary concern is her left leg swelling . She has had two ultrasounds and they are negative for DVT. She has also gone to [facility] room and tests were again negative. She is in tears as she does not know the cause of the swelling. She has been trying to wear compression stockings but they cause pain. She is erika wearing a lower grade stocking and feels her swelling in her left leg is not better. Bob Magaña MD [address] [place] [address] , [address], [place], [address], [place] [facility] 11/26/2016 10:26:19 OBGyn Episode No OBEpisode recorded.
--- OUTSIDE RECORDS SUMMARY | 2025-03-04 16:15 | XMS_ITS | Encounter Summary ---
Author Organization [facility] Address [address] [facility] [address] [place] [address] Phone Care Team Providers Care Bumper Machine Operator Name Role Phone Pernell Barton MD Primary Care Provider [phone] Encounter Details Date Type Department Care Team (Late st Contact Info) Description 03/20/2017 Procedure [facility] [address] [place] [address] Social History Tobacco Use Types Packs/Day Years [...] on filedocumented in this encounter Care Teams Bumper Machine Operator Relationship Specialty Start Date End Date Pernell Barton MD [address] [place] [id number] PCP - General Internal Medicine 02/01/17 documented as of this encounter Additional Source Comments The information contained in this document represents components of the legal health record. It is not the complete legal health record.[facility]
== END 2025-03-04 13:42 | disposition home or self-care (01) ==
LOC: HO.HPS 12:59
PROVIDERS: PCP Internal Medicine; Visit Provider Hospitalist
DX: R05.3 Chronic cough (principal); C34.91 Malignant neoplasm of unspecified part of right bronchus or lung; D3A.090 Benign carcinoid tumor of the bronchus and lung; J41.0 Simple chronic bronchitis
CPT/HCPCS: 99214; G2211

== ENCOUNTER → 2025-03-04 12:58 | Outpatient (BNVA) | payer MEDICARE, OTHER, SELFPAY | PROVIDERS: PCP Internal Medicine; Visit Provider Hospitalist | DX: J41.0 Simple chronic bronchitis (principal); C34.91 Malignant neoplasm of unspecified part of right bronchus or lung; D3A.090 Benign carcinoid tumor of the bronchus and lung; Z87.891 Personal history of nicotine dependence; R91.8 Other nonspecific abnormal finding of lung field | CPT/HCPCS: 99212 ==